=== PATIENT | female | born 1930 | race Caucasian/White ===

== ENCOUNTER 2017-05-23 10:32 | Day surgery (SDC) | payer MEDICARE, BC ==
[~2017-05-23 10:32] MED LIST: Lactated Ringers 1,000 ML IV SCH; Lidocaine 1%/Sod Bicarbonate in NS 8.4% 1 ML Syringe IV PRN; Sodium Chloride 0.9% 10 ML Syringe FLUSH PRN
--- NOTE | 2017-05-23 11:43 | PCM.PREANE ---
Preanesthetic Assessment - Anesthesia/Transfusion/Family Hx Anesthesia History: Prior Anesthesia Without Reaction Family History of Anesthesia Reaction: No Transfusion History: No Prior Transfusion(s) - Review of Systems General: No Symptoms Pulmonary: No Symptoms Cardiovascular: No Symptoms Gastrointestinal: No Symptoms Neurological: No Symptoms Other: Reports: None - Physical Assessment NPO Status Date: 05/23/17 NPO Status Time: 00:45 O2 Sat by Pulse Oximetry: 97 Respiratory Rate: 16 Vital Signs: Last Vital Signs Temp 36.3 C 05/23/17 10:50 Pulse 55 L 05/23/17 10:50 Resp 16 05/23/17 10:50 BP 117/65 05/23/17 10:50 Pulse Ox 97 05/23/17 10:50 Weight: 78 kg ASA Class: 3 Mental Status: Alert & Oriented x3 Airway Class: Mallampati = 1 Dentition: Reports: Partial (Upper), Missing Tooth/Teeth Thyro-Mental Finger Breadths: 3 Mouth Opening Finger Breadths: 3 ROM/Head Extension: Full Lungs: Clear to Auscultation, Normal Respiratory Effort Cardiovascular: Regular Rate, Regular Rhythm - Allergies Allergies/Adverse Reactions: Allergies Allergy/AdvReac Type Severity Reaction Status Date / Time aminolevulinic acid HCl Allergy Cannot Verified 05/22/17 12:49 [From Levulan] Remember atropine Allergy Swelling Verified 05/22/17 12:49 cerivastatin sodium AdvReac Paralysis Verified 05/22/17 12:49 [From Baycol] morphine AdvReac Chest Pain Verified 05/22/17 12:49 - Anesthesia Plan Pre-Op Medication Ordered: Beta Rachel Beta Rachel: Metoprolol Med Last Dose Date: 05/23/17 Med Last Dose Time: 08:30 - Acknowledgements Anesthesia Type Planned: MAC Pt an Appropriate Candidate for the Planned Anesthesia: Yes Alternatives and Risks of Anesthesia Discussed w Pt/Guardian: Yes Pt/Guardian Understands and Agrees with Anesthesia Plan: Yes Additional Comments: Patient understands with her recent cardiac surgery and AR she is at an increased risk for postoperative complications. She is understanding and wishes to proceed. Dr. Grady is also aware. PreAnesthesia Questionnaire HEENT History: Reports: Other (See Below) Other HEENT History: wears glasses, has hearing aids, upper plate Cardiovascular History: Reports: Afib, Heart Failure, Hypertension, AR, Other ( See Below) Other Cardiovascular History: ASCVD, CHF Respiratory History: Reports: None Gastrointestinal History: Reports: Cholelithiasis Genitourinary History: Reports: UTI, Recurrent, Other (See Below) Other Genitourinary History: renal insufficiency [employer] History: Reports: Musculoskeletal History: Reports: Back Pain, Chronic, Other (See Below) Other Musculoskeletal History: bunion, compression fracture, spinal stenosis Neurological History: Reports: None Psychiatric History: Reports: None Endocrine/Metabolic History: Reports: Hyperthyroidism, Osteoporosis Hematologic History: Reports: Anemia, Idiopathic Thrombocytopenia Oncologic (Cancer) History: Reports: Basal Cell Carcinoma, Other (See Below) Other Oncologic History: skin cancer Dermatologic History: Reports: Melanoma Other Dermatologic History: back of right leg, basal cell carcinoma on face, actinic keratosis - Infectious Disease History Infectious Disease History: Reports: Chicken Pox, Measles, Mumps - Past Surgical History HEENT Surgical History: Reports: Cataract Surgery Cardiovascular Surgical History: Reports: Coronary Artery Bypass, Other (See Below) Other Cardiovascular Surgeries/Procedures: angioplasty Respiratory Surgical History: Reports: None GI Surgical History: Reports: Cholecystectomy, Colonoscopy, Other (See Below) Other GI Surgeries/Procedures: splenectomy Female Surgical History: Reports: None Male Surgical History: Reports: None Endocrine Surgical History: Reports: None Neurological Surgical History: Reports: None Musculoskeletal Surgical History: Reports: Other (See Below) Other Musculoskeletal Surgeries/Procedures:: back surgery, 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, foot surgery Oncologic Surgical History: Reports: None Dermatological Surgical History: Reports: None, Skin Biopsy - SUBSTANCE USE Smoking Status *Q: Never Smoker Tobacco Use Within Last Twelve Months: No Second Hand Smoke Exposure: No Recreational Drug Use History: No - HOME MEDS Home Medications: Home Meds Denosumab [Prolia] 60 mg SUBCUT ASDIRECTED 09/22/15 [History] Rosuvastatin [Crestor] 10 mg PO BEDTIME #30 tablet 09/27/15 [Rx] Apixaban [Eliquis] 5 mg PO BID 10/23/15 [History] Cyanocobalamin (Vitamin B-12) [Vitamin B-12] 1,000 mg PO DAILY 10/23/15 [History ] Acetaminophen [Tylenol Extra Strength] 500 mg PO QID PRN 01/19/17 [History] Furosemide [Lasix] 20 mg PO BID 01/19/17 [History] Metoprolol Succinate [Toprol XL] 25 mg PO DAILY 01/19/17 [History] traMADol [Ultram] 50 mg PO Q6H PRN 01/19/17 [History] Calcium Carbonate/Vitamin D3 [Calcium 600 + Vit D Tablet] 1 tab PO DAILY [History] Fish Oil/[place]-3 Fatty Acids [Fish Oil 1,000 MG] 1 gm PO DAILY 05/22/17 [History ] - CURRENT (IN HOUSE) MEDS Current Meds: Current Medications Lactated Ringer's (Ringers, Lactated) 1,000 mls @ 125 mls/hr IV ASDIRECTED YANN Stop: 05/23/17 23:00 Lidocaine/Sodium Bicarbonate (Buffered Lidocaine 1% In Ns 8.4%) 0.25 ml IV ONETIME PRN PRN Reason: Prior to IV Start Stop: 05/23/17 18:00 Sodium Chloride (Saline Flush) 10 ml FLUSH ASDIRECTED PRN PRN Reason: Keep Vein Open Stop: 05/23/17 18:00
[2017-05-23] MEDS ORDERED: Lidocaine 1% 4 ML ONE (11:50)
[2017-05-23] MEDS ORDERED: Propofol 200 MG/20 ML SDV ONE (11:50)
--- NOTE | 2017-05-23 12:15 | PCM.OPNOTE ---
- General Post-Op/Procedure Note Date of Surgery/Procedure: 05/23/17 Operative Procedure(s): colonoscopy to cecum Pre Op Diagnosis: rectal bleeding Post-Op Diagnosis: Same Anesthesia Technique: MAC Primary Surgeon: Griffin Grady EBL in mLs: 0 Complications: None Condition: Good
--- NOTE | 2017-05-23 12:29 | PCM48HPAN ---
Post Anesthesia Note - EVALUATION WITHIN 48HRS OF ANESTHETIC Vital Signs in Normal Range: Yes Patient Participated in Evaluation: Yes Respiratory Function Stable: Yes Airway Patent: Yes Cardiovascular Function Stable: Yes Hydration Status Stable: Yes Pain Control Satisfactory: Yes Nausea and Vomiting Control Satisfactory: Yes Mental Status Recovered: Yes
--- NOTE | 2017-05-23 13:21 | OR ---
DATE OF OPERATION: 05/23/2017 SURGEON: Griffin Grady MD PREOPERATIVE DIAGNOSIS: Rectal bleeding. POSTOPERATIVE DIAGNOSIS: Rectal bleeding. OPERATION PERFORMED: Colonoscopy to cecum. FINDINGS: Thrombosed external hemorrhoids, some internal hemorrhoids likely source of bleeding. There are no angiodysplasias, neoplasias, large tumor masses, or ulcerations, and notable diverticula were not seen. ANESTHESIA: Procedure done under IV sedation. DESCRIPTION OF PROCEDURE: The patient was taken to the endoscopy room, placed in a supine position, connected to monitoring equipment, given IV sedation, and placed in left lateral position. Perianal area was inspected and showed thrombosed, protruding external hemorrhoids. Rectal exam showed good sphincter tone. A video Olympus colonoscope was then introduced into the rectum and threaded up without problem to the cecum, where the ileocecal valve and appendicular orifice were seen. Prep was excellent. [place] cleansing score grade A throughout the colon. The scope was slowly withdrawn showing the cecum, ascending colon, transverse colon, descending colon, sigmoid colon, and rectum. Retroflexed view was not done. The patient tolerated the procedure, sent to recovery room in a stable condition, and will be followed up as needed in the clinic. ESTIMATED BLOOD LOSS: MMODAL /[id number]
[2017-05-23 13:52] VITALS: BP 127/49
== END 2017-05-23 13:40 | disposition home or self-care (01) ==
LOC: JD.SDS 10:32
PROVIDERS: ATTEND Surgery
DX: K64.5 Perianal venous thrombosis (principal); K64.8 Other hemorrhoids; L57.0 Actinic keratosis; I25.10 Atherosclerotic heart disease of native coronary artery without angina pectoris; I48.91 Unspecified atrial fibrillation; I50.30 Unspecified diastolic (congestive) heart failure; M81.0 Age-related osteoporosis without current pathological fracture; E78.4 Other hyperlipidemia; M48.00 Spinal stenosis, site unspecified; I11.0 Hypertensive heart disease with heart failure; I25.2 Old myocardial infarction; E03.9 Hypothyroidism, unspecified; Z85.820 Personal history of malignant melanoma of skin; Z98.61 Coronary angioplasty status; Z98.890 Other specified postprocedural states; Z90.81 Acquired absence of spleen; Z79.899 Other long term (current) drug therapy; Z79.01 Long term (current) use of anticoagulants; Z88.8 Allergy status to other drugs, medicaments and biological substances; Z88.5 Allergy status to narcotic agent; Z95.1 Presence of aortocoronary bypass graft; Z90.49 Acquired absence of other specified parts of digestive tract
CPT/HCPCS: 45378; J7120; 00811; J2704

== ENCOUNTER 2017-10-24 10:35 | Emergency (ER) | payer MEDICARE, BC ==
[2017-10-24] MEDS ORDERED: Nitroglycerin 0.4 MG Tab.SL SL PRN (11:13)
[2017-10-24] MEDS ORDERED: Sodium Chloride 0.9% 10 ML Syringe FLUSH PRN (11:13)
--- NOTE | 2017-10-24 11:27 | EDM.PDOC ---
ED HPI GENERAL MEDICAL PROBLEM - General Chief Complaint: Chest Pain Stated Complaint: CHEST PAIN Time Seen by Provider: 10/24/17 10:59 Source of Information: Reports: Patient History Limitations: Reports: No Limitations - History of Present Illness INITIAL COMMENTS - FREE TEXT/NARRATIVE: Patient is a 86-year-old female with a history of age for fibrillation on Eliquis, heart failure, CABG times 07 December 2016, and hypertension who presents ED complaining of substernal chest discomfort. Discomfort described as sharp in nature most notably has been coming on at night while asleep. She states this often will wake her up in the middle of night while laying on her side. Pain is located substernal along the surgical incision site. She denies any recent fall or activity that precipitated this. States yesterday while walking back from dinner she was specifically more short of breath and upon returning to her residence developed substernal chest pain that went away on its own. She does note a burning sensation to the epigastric region and took Tums last night that resolved shortly after. She has extensive cardiac history. Had coronary bypass this past December by Dr. Carpenter 3. She's noticed increased weight gain over the past few weeks of almost 6 pounds. Is also been some noticeable mild increased edema to her lower extremities. Pain to the chest. Days ago did radiate into her back but this is not the norm. Normally is substernal with known radiation. She states also wench her chest feels cold the chest pain comes about. Yesterday she was and [place] walking around with no significant issues. With onset of chest pain no diaphoresis, no nausea or vomiting, or additional complaints. She currently has no chest pain, sob, fever, and or cough. - Related Data Allergies Allergy/AdvReac Type Severity Reaction Status Date / Time aminolevulinic acid HCl Allergy Cannot Verified 10/24/17 10:50 [From Levulan] Remember atropine Allergy Swelling Verified 10/24/17 10:50 cerivastatin sodium AdvReac Paralysis Verified 10/24/17 10:50 [From Baycol] morphine AdvReac Chest Pain Verified 10/24/17 10:50 Home Meds: Home Meds Denosumab [Prolia] 60 mg SUBCUT ASDIRECTED 09/22/15 [History] Rosuvastatin [Crestor] 10 mg PO BEDTIME #30 tablet 09/27/15 [Rx] Apixaban [Eliquis] 5 mg PO BID 10/23/15 [History] Cyanocobalamin (Vitamin B-12) [Vitamin B-12] 1,000 mg PO DAILY 10/23/15 [History ] Acetaminophen [Tylenol Extra Strength] 500 mg PO BID PRN 01/19/17 [History] traMADol [Ultram] 50 mg PO Q6H PRN 01/19/17 [History] Fish Oil/[place]-3 Fatty Acids [Fish Oil 1,000 MG] 1 gm PO DAILY 05/22/17 [History ] Aspirin [Halfprin] 81 mg PO DAILY 10/24/17 [History] Calcium Carb/Vitamin D3/Vit K1 [Viactiv Soft Chew] 1 b PO DAILY 10/24/17 [ History] Furosemide [Lasix] 80 mg PO DAILY 10/24/17 [History] Metoprolol Tartrate [Lopressor] 25 mg PO DAILY 10/24/17 [History] Omeprazole 20 mg PO DAILY #30 cap.cr 10/24/17 [Rx] Ramipril [Altace] 2.5 mg PO DAILY 10/24/17 [History] Past Medical History HEENT History: Reports: Other (See Below) Other HEENT History: wears glasses, has hearing aids, upper plate Cardiovascular History: Reports: Afib, Heart Failure, Hypertension, MD, Other ( See Below) Other Cardiovascular History: ASCVD, CHF Respiratory History: Reports: None Gastrointestinal History: Reports: Cholelithiasis Genitourinary History: Reports: UTI, Recurrent, Other (See Below) Other Genitourinary History: 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: 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: Musculoskeletal History: Reports: Back Pain, Chronic, Other (See Below) Other Musculoskeletal History: bunion, compression fracture, spinal stenosis Neurological History: Reports: None Psychiatric History: Reports: None Endocrine/Metabolic History: Reports: Hyperthyroidism, Osteoporosis Hematologic History: Reports: Anemia, Idiopathic Thrombocytopenia Oncologic (Cancer) History: Reports: Basal Cell Carcinoma, Other (See Below) Other Oncologic History: skin cancer Dermatologic History: Reports: Melanoma Other Dermatologic History: back of right leg, basal cell carcinoma on face, actinic keratosis - Infectious Disease History Infectious Disease History: Reports: Chicken Pox, Measles, Mumps - Past Surgical History HEENT Surgical History: Reports: Cataract Surgery Cardiovascular Surgical History: Reports: Coronary Artery Bypass, Other (See Below) Other Cardiovascular Surgeries/Procedures: angioplasty Respiratory Surgical History: Reports: None GI Surgical History: Reports: Cholecystectomy, Colonoscopy, Other (See Below) Other GI Surgeries/Procedures: splenectomy Female Surgical History: Reports: None Endocrine Surgical History: Reports: None Neurological Surgical History: Reports: None Musculoskeletal Surgical History: Reports: Other (See Below) Other Musculoskeletal Surgeries/Procedures:: back surgery, 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, foot surgery Oncologic Surgical History: Reports: None Dermatological Surgical History: Reports: None, Skin Biopsy Social & Family History - Family History Family Medical History: Noncontributory HEENT: Reports: Cataract Cardiac: Reports: MD : Reports: Renal Calculus, Other (See Below) Other Family History: Glomerular Nephritis Musculoskeletal: Reports: Back pain, Chronic Neurological: Reports: CVA Endocrine/Metabolic: Reports: None Oncologic: Reports: Brain - Caffeine Use Caffeine Use: Reports: Coffee - Living Situation & Occupation Living situation: Reports: Occupation: Retired ED ROS GENERAL - Review of Systems Review Of Systems: See Below Constitutional: Reports: No Symptoms HEENT: Reports: No Symptoms Respiratory: Reports: Pleuritic Chest Pain. Denies: Shortness of Breath, Wheezing, Cough, Sputum, Hemoptysis Cardiovascular: Reports: Chest Pain, Dyspnea on Exertion, Edema. Denies: Blood Pressure Problem, Claudication, Lightheadedness, Orthopnea, Palpitations, PND, Syncope GI/Abdominal: Reports: No Symptoms : Reports: No Symptoms Neurological: Reports: No Symptoms ED EXAM, GENERAL - Physical Exam Exam: See Below Exam Limited By: No Limitations General Appearance: Alert, WD/WN, No Apparent Distress Ears: Hearing Grossly Normal Nose: Normal Inspection Throat/Mouth: Normal Inspection, Normal Voice, No Airway Compromise Neck: Normal Inspection, Supple Respiratory/Chest: No Respiratory Distress, Lungs Clear, Normal Breath Sounds, No Accessory Muscle Use, Other (tender along the left lower sternal border worsened with palpation. ) Cardiovascular: Normal Peripheral Pulses, Regular Rate, Rhythm, No Murmur ( obvious) Peripheral Pulses: 4+: Radial (L), Radial (R) GI/Abdominal: Normal Bowel Sounds, Soft, Non-Tender, No Organomegaly, No Distention Back Exam: Normal Inspection Extremities: Other (Mild swelling increased to the left leg secondary to harvesting of the GSB. Chronic with no new changes. Family states slight increase in edema noted to the right leg. No pain along the posterior aspect of the leg. Peripheral pulses are intact. Skin pink warm and dry.) Neurological: Alert, Oriented, CN II-XII Intact, Normal Cognition, No Motor/ Sensory Deficits Psychiatric: Normal Affect, Normal Mood Skin Exam: Warm, Dry, Intact, Normal Color Course - Vital Signs Last Recorded V/S: Last Vital Signs Temp 98.4 F 10/24/17 17:49 Pulse 63 10/24/17 17:49 Resp 20 10/24/17 17:49 BP 134/65 10/24/17 17:49 Pulse Ox 95 10/24/17 17:49 - Orders/Labs/Meds Orders: Active Orders 24 hr Category Date Time Status Cardiac Monitoring [RC] . DIRECTED Care 10/24/17 11:13 Active Peripheral IV Care [RC] . DIRECTED Care 10/24/17 11:16 Active CULTURE URINE [RM] Stat Lab 10/24/17 17:00 Received ED GI Medications Reflex [OM.PC] Stat Oth 10/24/17 11:14 Ordered Peripheral IV Insertion Adult [OM.PC] Stat Oth 10/24/17 11:13 Ordered Saline Lock Insert [OM.PC] Stat Oth 10/24/17 11:13 Ordered Labs: Laboratory Tests 10/24/17 10/24/17 10/24/17 Range/Units 11:18 11:18 11:18 WBC 8.71 (3.98-10.04) K/mm3 RBC 4.32 (3.98-5.22) M/mm3 Hgb 12.9 (11.2-15.7) gm/L Hct 40.2 (34.1-44.9) % MCV 93.1 (79.4-94.8) fl MCH 29.9 (25.6-32.2) pg MCHC 32.1 L (32.2-35.5) g/dl RDW Std Deviation 49.3 H (36.4-46.3) fL Plt Count 250 (182-369) K/mm3 MPV 11.1 (9.4-12.3) fl Neut % (Auto) 39.2 (34.0-71.1) % Lymph % (Auto) 45.2 (19.3-51.7) % Potter % (Auto) 11.9 (4.7-12.5) % Eos % (Auto) 3.0 (0.7-5.8) Baso % (Auto) 0.6 (0.1-1.2) % Neut # (Auto) 3.41 (1.56-6.13) K/mm3 Lymph # (Auto) 3.94 H (1.18-3.74) K/mm3 Potter # (Auto) 1.04 H (0.24-0.36) K/mm3 Eos # (Auto) 0.26 (0.04-0.36) K/mm3 Baso # (Auto) 0.05 (0.01-0.08) K/mm3 ESR 21 H (0-20) mm/hr PT 11.8 (9.5-12.1) SECONDS INR 1.08 APTT 28 (24-31) SECONDS D-Dimer, Quantitative 0.23 (0.19-0.50) mg/L Sodium (136-145) mEq/L Potassium (3.5-5.1) mEq/L Chloride (98-107) mEq/L Carbon Dioxide (21-32) mEq/L Anion Gap (5-15) BUN (7-18) mg/dL Creatinine (0.55-1.02) mg/dL Est Cr Clr Drug Dosing mL/min Estimated GFR (MDRD) (>60) mL/min BUN/Creatinine Ratio (14-18) Glucose (83-115) mg/dL Calcium (8.5-10.1) mg/dL Magnesium (1.8-2.4) mg/dl Total Bilirubin (0.2-1.0) mg/dL AST (15-37) U/L ALT (14-59) U/L Alkaline Phosphatase (46-116) U/L Troponin I (0.00-0.056) ng/mL C-Reactive Protein (<1.0) mg/dL NT-Pro-B Natriuret Pep (0-450) pg/mL Total Protein (6.4-8.2) g/dl Albumin (3.4-5.0) g/dl Globulin gm/dL Albumin/Globulin Ratio (1-2) Lipase (73-393) U/L Urine Color (Yellow) Urine Appearance (Clear) Urine pH (5.0-8.0) Ur Specific [place] (1.005-1.030) Urine Protein (Negative) Urine Glucose (UA) (Negative) Urine Ketones (Negative) Urine Occult Blood (Negative) Urine Nitrite (Negative) Urine Bilirubin (Negative) Urine Urobilinogen (0.2-1.0) Ur Leukocyte Esterase (Negative) Urine RBC (0-5) /hpf Urine WBC (0-5) /hpf Ur Epithelial Cells (0-5) /hpf Urine Bacteria (FEW) /hpf Hyaline Casts (0-5) /lpf Fine Granular Casts (0-5) /lpf Waxy Casts (0-5) /lpf Urine Mucus (FEW) /hpf 10/24/17 10/24/17 10/24/17 Range/Units 11:18 11:18 14:20 WBC (3.98-10.04) K/mm3 RBC (3.98-5.22) M/mm3 Hgb (11.2-15.7) gm/L Hct (34.1-44.9) % MCV (79.4-94.8) fl MCH (25.6-32.2) pg MCHC (32.2-35.5) g/dl RDW Std Deviation (36.4-46.3) fL Plt Count (182-369) K/mm3 MPV (9.4-12.3) fl Neut % (Auto) (34.0-71.1) % Lymph % (Auto) (19.3-51.7) % Potter % (Auto) (4.7-12.5) % Eos % (Auto) (0.7-5.8) Baso % (Auto) (0.1-1.2) % Neut # (Auto) (1.56-6.13) K/mm3 Lymph # (Auto) (1.18-3.74) K/mm3 Potter # (Auto) (0.24-0.36) K/mm3 Eos # (Auto) (0.04-0.36) K/mm3 Baso # (Auto) (0.01-0.08) K/mm3 ESR (0-20) mm/hr PT (9.5-12.1) SECONDS INR APTT (24-31) SECONDS D-Dimer, Quantitative (0.19-0.50) mg/L Sodium 142 (136-145) mEq/L Potassium 3.5 (3.5-5.1) mEq/L Chloride 104 (98-107) mEq/L Carbon Dioxide 27 (21-32) mEq/L Anion Gap 14.5 (5-15) BUN 18 (7-18) mg/dL Creatinine 1.1 H (0.55-1.02) mg/dL Est Cr Clr Drug Dosing 31.70 mL/min Estimated GFR (MDRD) 47 (>60) mL/min BUN/Creatinine Ratio 16.4 (14-18) Glucose 179 H (83-115) mg/dL Calcium 9.3 (8.5-10.1) mg/dL Magnesium 1.5 L (1.8-2.4) mg/dl Total Bilirubin 0.6 (0.2-1.0) mg/dL AST 27 (15-37) U/L ALT 21 (14-59) U/L Alkaline Phosphatase 63 (46-116) U/L Troponin I 0.037 0.035 (0.00-0.056) ng/mL C-Reactive Protein < 0.2 (<1.0) mg/dL NT-Pro-B Natriuret Pep 548 H (0-450) pg/mL Total Protein 6.7 (6.4-8.2) g/dl Albumin 3.2 L (3.4-5.0) g/dl Globulin 3.5 gm/dL Albumin/Globulin Ratio 0.9 L (1-2) Lipase 123 (73-393) U/L Urine Color (Yellow) Urine Appearance (Clear) Urine pH (5.0-8.0) Ur Specific [place] (1.005-1.030) Urine Protein (Negative) Urine Glucose (UA) (Negative) Urine Ketones (Negative) Urine Occult Blood (Negative) Urine Nitrite (Negative) Urine Bilirubin (Negative) Urine Urobilinogen (0.2-1.0) Ur Leukocyte Esterase (Negative) Urine RBC (0-5) /hpf Urine WBC (0-5) /hpf Ur Epithelial Cells (0-5) /hpf Urine Bacteria (FEW) /hpf Hyaline Casts (0-5) /lpf Fine Granular Casts (0-5) /lpf Waxy Casts (0-5) /lpf Urine Mucus (FEW) /hpf 10/24/17 10/24/17 Range/Units 17:00 18:00 WBC (3.98-10.04) K/mm3 RBC (3.98-5.22) M/mm3 Hgb (11.2-15.7) gm/L Hct (34.1-44.9) % MCV (79.4-94.8) fl MCH (25.6-32.2) pg MCHC (32.2-35.5) g/dl RDW Std Deviation (36.4-46.3) fL Plt Count (182-369) K/mm3 MPV (9.4-12.3) fl Neut % (Auto) (34.0-71.1) % Lymph % (Auto) (19.3-51.7) % Potter % (Auto) (4.7-12.5) % Eos % (Auto) (0.7-5.8) Baso % (Auto) (0.1-1.2) % Neut # (Auto) (1.56-6.13) K/mm3 Lymph # (Auto) (1.18-3.74) K/mm3 Potter # (Auto) (0.24-0.36) K/mm3 Eos # (Auto) (0.04-0.36) K/mm3 Baso # (Auto) (0.01-0.08) K/mm3 ESR (0-20) mm/hr PT (9.5-12.1) SECONDS INR APTT (24-31) SECONDS D-Dimer, Quantitative (0.19-0.50) mg/L Sodium (136-145) mEq/L Potassium (3.5-5.1) mEq/L Chloride (98-107) mEq/L Carbon Dioxide (21-32) mEq/L Anion Gap (5-15) BUN (7-18) mg/dL Creatinine (0.55-1.02) mg/dL Est Cr Clr Drug Dosing mL/min Estimated GFR (MDRD) (>60) mL/min BUN/Creatinine Ratio (14-18) Glucose (83-115) mg/dL Calcium (8.5-10.1) mg/dL Magnesium (1.8-2.4) mg/dl Total Bilirubin (0.2-1.0) mg/dL AST (15-37) U/L ALT (14-59) U/L Alkaline Phosphatase (46-116) U/L Troponin I 0.026 (0.00-0.056) ng/mL C-Reactive Protein (<1.0) mg/dL NT-Pro-B Natriuret Pep (0-450) pg/mL Total Protein (6.4-8.2) g/dl Albumin (3.4-5.0) g/dl Globulin gm/dL Albumin/Globulin Ratio (1-2) Lipase (73-393) U/L Urine Color Yellow (Yellow) Urine Appearance Clear (Clear) Urine pH 6.5 (5.0-8.0) Ur Specific [place] 1.020 (1.005-1.030) Urine Protein Negative (Negative) Urine Glucose (UA) Negative (Negative) Urine Ketones Negative (Negative) Urine Occult Blood Negative (Negative) Urine Nitrite Negative (Negative) Urine Bilirubin Negative (Negative) Urine Urobilinogen 0.2 (0.2-1.0) Ur Leukocyte Esterase 1+ H (Negative) Urine RBC Not seen (0-5) /hpf Urine WBC 40-50 H (0-5) /hpf Ur Epithelial Cells 0-5 (0-5) /hpf Urine Bacteria Few (FEW) /hpf Hyaline Casts 0-5 (0-5) /lpf Fine Granular Casts 0-5 (0-5) /lpf Waxy Casts 0-5 (0-5) /lpf Urine Mucus Not seen (FEW) /hpf Meds: Medications Discontinued Medications Generic Name Dose Route Start Last Admin Trade Name Esauq PRN Reason Stop Dose Admin Furosemide 40 mg 10/24/17 15:23 10/24/17 15:49 Lasix IVPUSH 10/24/17 15:24 40 mg NOW ONE Administration Magnesium Sulfate 2 gm/ Premix 50 mls @ 25 mls/hr 10/24/17 11:57 10/24/17 12: 13 IV 10/24/17 13:56 25 mls/hr ONETIME ONE Administration Nitroglycerin 0.4 mg 10/24/17 11:13 Nitrostat SL 10/25/17 11:16 Q5M PRN Chest Pain Potassium Chloride 40 meq 10/24/17 15:23 10/24/17 15:49 Klor-Con M20 PO 10/24/17 15:24 40 meq ONETIME ONE Administration Sodium Chloride 10 ml 10/24/17 11:13 10/24/17 11:39 Saline Flush FLUSH 10 ml ASDIRECTED PRN Administration Keep Vein Open - Re-Assessments/Exams Free Text/Narrative Re-Assessment/Exam: IV established saline lock. Ordered nitroglycerin sublingual when necessary for chest pain. She has no chest pain currently. Vital signs are stable. Initial labs and studies will include CBC, chem 14, CRP, d-dimer, ESR, lipase, magnesium, proBNP, coag studies, troponin, chest x-ray, and EKG. EKG sinus rhythm at a rate of 75 with left bundle branch block. Reviewed previous EKG dated 12/25/2016 and was revealed a left bundle branch block as well. With review previous cardiovascular studies conducted here at [facility]. I do not see a recent echocardiogram obtained. She was last evaluated by Dr. Murillo dental laboratory technician with heart and lung at [facility] this past May. This was a follow-up visit following CABG [address] Carpenter. 10/24/17 12:04 Labs reviewed: CBC essentially normal. D-dimer 0.23. Creatinine 1.1, magnesium mildly low at 1.5, troponin 0.037, BNP 548, lipase 123. CRP is pending. Second troponin will be obtained at 1418. CXR reviewed with Dr. Hernandez with no significant changes noted from previous CXR 12/2016. Ordered magnesium 2 grams IV. 10/24/17 15:08 2nd troponin 0.035. [address] Dalton bridge ironworker Cardiologists. She believes current complaints are due to increased fluid with recent weight gain, worsening sob with exertion, and chest pain with exertion. Suggested increasing lasix from 80mg qam to 160mg qam for 3 days. No imdur. Check weight daily. If no improvements call [facility] and [facility] this coming Sunday for further direction. I have ordered lasix 40mg IVP with potassium 40mEq PO. Patient agrees with plan. Return precautions discussed with patient and family present. They had no further questions. Will get patient up and walk and see how she does prior to discharge. Patient walked around the E.D. Patient did become slightly SOB with slight CP. Will await and see if chest pain dissipates. No medications will be given. If no change will consult hospitalists for transfer. 1610 Reassessment, sob and chest pain resolved. Both family and patient are concerned about discharging home with patient having stable angina. Discussed admission for diuresis to which they have agreed. Will speak with Dr. Scanlon. [address] Scanlon. She will have All Source Analyst see the patient prior to admission to ensure discharge plan is present. [address] Scanlon. Suggested transfer to [facility] to undergo coronary angiogram to ensure graphs are patent. Believes this is unstable angina since change from baseline. 1705 Patient and family are okay with transferring to [facility] for evaluation. 10/24/17 17:[address] Watkins bridge ironworker Cardiologists. He agrees further cardiac evaluation would be appropriate. 1731 I have spoke with Dr. Reed bridge ironworker Hospitalists at [facility]. She has accepted the patient. Ambulance notified and all transfer paperwork completed. Departure - Departure Time of Disposition: 15:40 Disposition: DC/Tfer to Acute Hospital 02 Reason for Transfer *Q: Other Condition: Good Clinical Impression: Unstable angina Acute exacerbation of CHF (congestive heart failure) Qualifiers: Heart failure type: unspecified Qualified Code(s): I50.9 - Heart failure, unspecified GERD (gastroesophageal reflux disease) Qualifiers: Esophagitis presence: esophagitis presence not specified Qualified Code(s): K21.9 - Gastro-esophageal reflux disease without esophagitis Prescriptions: Omeprazole 20 mg PO DAILY #30 cap.cr Instructions: Heart Failure Action Plan, Gastroesophageal Reflux Disease, Adult , [id number], Heart Failure, Potassium (K) Test, Angina Pectoris, Form - Daily Weight Record Referrals: Jose Carlos Westfall MD [Primary Care Provider] - Forms: ED Department Discharge - My Orders Last 24 Hours: My Active Orders 10/24/17 11:13 Cardiac Monitoring [RC] . DIRECTED Peripheral IV Insertion Adult [OM.PC] Stat Saline Lock Insert [OM.PC] Stat 10/24/17 11:14 ED GI Medications Reflex [OM.PC] Stat 10/24/17 11:16 Peripheral IV Care [RC] . DIRECTED 10/24/17 17:00 CULTURE URINE [RM] Stat - Assessment/Plan Last 24 Hours: My Active Orders 10/24/17 11:13 Cardiac Monitoring [RC] . DIRECTED Peripheral IV Insertion Adult [OM.PC] Stat Saline Lock Insert [OM.PC] Stat 10/24/17 11:14 ED GI Medications Reflex [OM.PC] Stat 10/24/17 11:16 Peripheral IV Care [RC] . DIRECTED 10/24/17 17:00 CULTURE URINE [RM] Stat
[2017-10-24] MEDS ORDERED: Magnesium Sulfate/Water 2 GM in Premix Bag 1 BAG IV ONE (11:57)
--- NOTE | 2017-10-24 13:19 | CR ---
Chest: Portable view of the chest was obtained. Comparison: Prior chest x-ray of 12/25/16. Heart is slightly enlarged. Widening of the mediastinum is seen superiorly which appears to be chronic. Pulmonary vessels are felt to be slightly congested. No alveolar type densities are seen. Bony structures are osteopenic. Prior vertebroplasty is seen at the thoracolumbar junction which is stable. Previous sternotomy is noted for CABG. Impression: 1. Pulmonary vessels are felt to be slightly congested. 2. Other incidental findings as noted above. Diagnostic code #3
[2017-10-24] MEDS ORDERED: Potassium Chloride 20 MEQ Tab.ER PO ONE (15:23)
[2017-10-24] MEDS ORDERED: Furosemide 40 MG/4 ML VIAL IVPUSH ONE (15:23)
[2017-10-24 17:50] VITALS: BP 134/65
== END 2017-10-24 18:30 ==
LOC: JD.ED 10:35
DX: I20.0 Unstable angina (principal); K21.9 Gastro-esophageal reflux disease without esophagitis; I11.0 Hypertensive heart disease with heart failure; I50.9 Heart failure, unspecified; I25.2 Old myocardial infarction; E05.90 Thyrotoxicosis, unspecified without thyrotoxic crisis or storm; Z95.1 Presence of aortocoronary bypass graft; Z88.8 Allergy status to other drugs, medicaments and biological substances; Z88.5 Allergy status to narcotic agent; Z79.899 Other long term (current) drug therapy; Z79.82 Long term (current) use of aspirin
CPT/HCPCS: 36415; 71045; 80053; 81001; 83690; 83735; 83880; 84484; 85025; 85379; 85610; 85652; 85730; 86140; 87086; 96365; 96366; 96375; 99285; A9270; J1940; J7050; 87088; 87186; J3475

== ENCOUNTER 2017-11-03 14:58 | Inpatient (IN) | payer MEDICARE, BC ==
[2017-11-03] MEDS ORDERED: Sodium Chloride 0.9% 10 ML Syringe FLUSH PRN (15:25)
[2017-11-03] MEDS ORDERED: Sodium Chloride 0.9% 1,000 ML IV SCH (15:30)
--- NOTE | 2017-11-03 15:34 | EDM.PDOC ---
ED HPI GENERAL MEDICAL PROBLEM - General Chief Complaint: Cardiovascular Problem Stated Complaint: RAPID HEART RATE Time Seen by Provider: 11/03/17 15:02 Source of Information: Reports: Patient, Family History Limitations: Reports: No Limitations - History of Present Illness INITIAL COMMENTS - FREE TEXT/NARRATIVE: Patient is a 86-year-old female who presents ED in nature fibrillation complaining of increasing shortness of breath with exertion with no chest pain. Family present who are all nurses in the E.D. reported HR in the 130-140's with ambulation. Patient recently underwent stent placement to the LAD and also circumflex 2 days ago at [facility]. She was seen in the ED on its October year and [place] with diagnosis of unstable chest discomfort. She was transferred to [place] for further cardiac testings. Patient did have chest discomfort with ambulation here in the ED that is relieved with rest. 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 Patient recently underwent cardiac stress testing which was abnormal. Coronary angiogram revealed the venous grafts were thrombosed. They elected to attempt stenting with placement of a left ventricular device and pillow for severe coronary disease. Patient had stent placement to the LAD and also circumflex. Had one episode of atrial fibrillation 11/01/2017. Metoprolol restarted as well as placement of IV him and wrote. She later reported back to normal sinus rhythm. She was discharged on decreased dose metoprolol 12.5 mg daily, amiodarone Taper, and decreased dose of Eliquis at 2.5 mg twice a day. There is instructions to follow-up with PCP in one week. [facility] cardiology in 2 weeks along with cardiac rehabilitation. - Related Data Allergies Allergy/AdvReac Type Severity Reaction Status Date / Time aminolevulinic acid HCl Allergy Cannot Verified 10/24/17 10:50 [From Levulan] Remember atropine Allergy Swelling Verified 10/24/17 10:50 cerivastatin sodium AdvReac Paralysis Verified 10/24/17 10:50 [From Baycol] morphine AdvReac Chest Pain Verified 10/24/17 10:50 Home Meds: Home Meds Acetaminophen [Tylenol Extra Strength] 500 mg PO Q4HR PRN 11/03/17 [History] Amiodarone [Cordarone] 200 mg PO DAILY 11/03/17 [History] Amiodarone [Cordarone] 400 mg PO DAILY 11/03/17 [History] Apixaban [Eliquis] 2.5 mg PO BID 11/03/17 [History] Aspirin [Adult Low Dose Aspirin EC] 81 mg PO DAILY 11/03/17 [History] Clopidogrel [Plavix] 75 mg PO DAILY 11/03/17 [History] Cyanocobalamin (Vitamin B-12) [Vitamin B-12] 1,000 mcg PO DAILY 11/03/17 [ History] Denosumab [Prolia] 60 mg INJECT Q6M 11/03/17 [History] Furosemide 40 mg PO BID 11/03/17 [History] Metoprolol Succinate [Toprol XL] 12.5 mg PO DAILY 11/03/17 [History] Nitroglycerin 0.4 mg SL ASDIRECTED PRN 11/03/17 [History] Pantoprazole Sodium [Protonix] 40 mg PO DAILY 11/03/17 [History] Rosuvastatin [Crestor] 10 mg PO BEDTIME 11/03/17 [History] Sulfamethoxazole/Trimethoprim [Bactrim Ds Tablet] 1 each PO BID 11/03/17 [ History] traMADol [Ultram] 50 mg PO Q6H PRN 11/03/17 [History] Past Medical History HEENT History: Reports: Other (See Below) Other HEENT History: wears glasses, has hearing aids, upper plate Cardiovascular History: Reports: Afib, Heart Failure, Hypertension, OR, Stents, Other (See Below) Other Cardiovascular History: ASCVD, CHF; LAD and circumflex stents placed on October 31 at [facility] per dr. 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 AUDIOPROSTHOLOGIST History: Reports: Musculoskeletal History: Reports: Back Pain, Chronic, Other (See Below) Other Musculoskeletal History: bunion, compression fracture, spinal stenosis Neurological History: Reports: None Psychiatric History: Reports: None Endocrine/Metabolic History: Reports: Hyperthyroidism, Osteoporosis Hematologic History: Reports: Anemia, Idiopathic Thrombocytopenia Oncologic (Cancer) History: Reports: Basal Cell Carcinoma, Other (See Below) Other Oncologic History: skin cancer Dermatologic History: Reports: Melanoma Other Dermatologic History: back of right leg, basal cell carcinoma on face, actinic keratosis - Infectious Disease History Infectious Disease History: Reports: Chicken Pox, Measles, Mumps - Past Surgical History HEENT Surgical History: Reports: Cataract Surgery Cardiovascular Surgical History: Reports: Coronary Artery Bypass, Other (See Below) Other Cardiovascular Surgeries/Procedures: angioplasty Respiratory Surgical History: Reports: None GI Surgical History: Reports: Cholecystectomy, Colonoscopy, Other (See Below) Other GI Surgeries/Procedures: splenectomy Female Surgical History: Reports: None Endocrine Surgical History: Reports: None Neurological Surgical History: Reports: None Musculoskeletal Surgical History: Reports: Other (See Below) Other Musculoskeletal Surgeries/Procedures:: back surgery, 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, foot surgery Oncologic Surgical History: Reports: None Dermatological Surgical History: Reports: None, Skin Biopsy Social & Family History - Family History Family Medical History: Noncontributory HEENT: Reports: Cataract Cardiac: Reports: OR : Reports: Renal Calculus, Other (See Below) Other Family History: Glomerular Nephritis Musculoskeletal: Reports: Back pain, Chronic Neurological: Reports: CVA Endocrine/Metabolic: Reports: None Oncologic: Reports: Brain - Tobacco Use Smoking Status *Q: Never Smoker - Caffeine Use Caffeine Use: Reports: Coffee, Soda Caffeine Use Comment: one cup of coffee in the mornings. - Recreational Drug Use Recreational Drug Use: No - Living Situation & Occupation Living situation: Reports: Occupation: Retired ED ROS GENERAL - Review of Systems Review Of Systems: See Below Constitutional: Reports: Malaise, Weakness, Decreased Appetite. Denies: Fever, Chills HEENT: Reports: No Symptoms Respiratory: Reports: Shortness of Breath (With exertion). Denies: Wheezing, Pleuritic Chest Pain, Cough, Sputum Cardiovascular: Reports: Dyspnea on Exertion, Palpitations. Denies: Chest Pain , Lightheadedness, Syncope GI/Abdominal: Reports: No Symptoms : Reports: No Symptoms Musculoskeletal: Reports: No Symptoms Neurological: Reports: No Symptoms ED EXAM, GENERAL - Physical Exam Exam: See Below Exam Limited By: No Limitations General Appearance: Alert, WD/WN, No Apparent Distress Ears: Hearing Grossly Normal Nose: Normal Inspection Throat/Mouth: Normal Voice, No Airway Compromise Head: Atraumatic, Normocephalic Neck: Normal Inspection, Supple, Non-Tender, Full Range of Motion Respiratory/Chest: No Respiratory Distress, Lungs Clear, Normal Breath Sounds, No Accessory Muscle Use, Chest Non-Tender Cardiovascular: Normal Peripheral Pulses, No Edema, No JVD, Tachycardia, Systolic Murmur, Irregularly Irregular Peripheral Pulses: 2+: Posterior Tibial (L), Posterior Tibial (R), 4+: Radial (L ), Radial (R) GI/Abdominal: Normal Bowel Sounds, Soft, Non-Tender, No Organomegaly, No Distention Extremities: Normal Inspection, Non-Tender, No Pedal Edema, Normal Capillary Refill Neurological: Alert, Oriented, CN II-XII Intact, Normal Cognition, No Motor/ Sensory Deficits Psychiatric: Normal Affect, Normal Mood Skin Exam: Warm, Dry, Intact, No Rash, Other (grayish) Course - Vital Signs Last Recorded V/S: Last Vital Signs Temp 98.0 F 11/04/17 12:00 Pulse 112 H 11/03/17 15:01 Resp 17 11/04/17 12:00 BP 119/67 11/04/17 12:00 Pulse Ox 95 11/04/17 12:00 - Orders/Labs/Meds Orders: Active Orders 24 hr Category Date Time Status Cardiac Monitoring [RC] . DIRECTED Care 11/03/17 15:25 Active EKG Documentation Completion [RC] STAT Care 11/03/17 15:26 Active Chest 1V Frontal [CR] Stat Exams 11/03/17 15:26 Taken UA W/MICROSCOPIC [URIN] Stat Lab 11/03/17 17:15 Ordered Sodium Chloride 0.9% [Saline Flush] Med 11/03/17 15:25 Active 10 ml FLUSH ASDIRECTED PRN Peripheral IV Insertion Adult [OM.PC] Stat Oth 11/03/17 15:25 Ordered Medication Orders Acetaminophen (Tylenol) 650 mg PO Q4H PRN PRN Reason: Pain Last Admin: 11/03/17 21:24 Dose: 650 mg Amiodarone HCl (Cordarone) 400 mg PO BID [facility] Last Admin: 11/04/17 08:45 Dose: 400 mg Admin: 11/03/17 21:17 Dose: 400 mg Apixaban (Eliquis) 2.5 mg PO BID [facility] Last Admin: 11/04/17 08:45 Dose: 2.5 mg Admin: 11/03/17 21:17 Dose: 2.5 mg Aspirin (Halfprin) 81 mg PO DAILY [facility] Last Admin: 11/04/17 08:44 Dose: 81 mg Cephalexin (Keflex) 500 mg PO Q12H [facility] Last Admin: 11/04/17 08:44 Dose: 500 mg Admin: 11/03/17 21:18 Dose: 500 mg Clopidogrel Bisulfate (Plavix) 75 mg PO DAILY [facility] Last Admin: 11/04/17 08:44 Dose: 75 mg Furosemide (Lasix) 40 mg PO BIDDIURETIC [facility] Last Admin: 11/04/17 06:42 Dose: 40 mg Hydralazine HCl (Apresoline) 20 mg IVPUSH Q8H PRN PRN Reason: Hypertension Magnesium Oxide (Magnesium Oxide) 800 mg PO DAILY [facility] Last Admin: 11/04/17 08:44 Dose: 800 mg Metoprolol Tartrate (Lopressor) 5 mg IVPUSH Q6H PRN PRN Reason: heart rate>120 Nitroglycerin (Nitrostat) 0.4 mg SL ASDIRECTED PRN PRN Reason: angina Pantoprazole Sodium (Protonix) 40 mg PO DAILY@0700 [facility] Last Admin: 11/04/17 06:42 Dose: 40 mg Rosuvastatin Calcium (Crestor) 10 mg PO BEDTIME [facility] Last Admin: 11/03/17 21:17 Dose: 10 mg Sodium Chloride (Saline Flush) 10 ml FLUSH ASDIRECTED PRN PRN Reason: Keep Vein Open Last Admin: 11/03/17 15:43 Dose: 10 ml Tramadol HCl (Ultram) 50 mg PO Q6H PRN PRN Reason: Pain Labs: Laboratory Tests 11/03/17 11/03/17 11/03/17 Range/Units 15:19 15:19 15:19 WBC 11.05 H (3.98-10.04) K/mm3 RBC 3.50 L (3.98-5.22) M/mm3 Hgb 10.5 L (11.2-15.7) gm/L Hct 32.3 L (34.1-44.9) % MCV 92.3 (79.4-94.8) fl MCH 30.0 (25.6-32.2) pg MCHC 32.5 (32.2-35.5) g/dl RDW Std Deviation 46.6 H (36.4-46.3) fL Plt Count 230 (182-369) K/mm3 MPV 11.0 (9.4-12.3) fl Neut % (Auto) 46.9 (34.0-71.1) % Lymph % (Auto) 37.3 (19.3-51.7) % [place] % (Auto) 11.8 (4.7-12.5) % Eos % (Auto) 3.3 (0.7-5.8) Baso % (Auto) 0.5 (0.1-1.2) % Neut # (Auto) 5.19 (1.56-6.13) K/mm3 Lymph # (Auto) 4.12 H (1.18-3.74) K/mm3 [place] # (Auto) 1.30 H (0.24-0.36) K/mm3 Eos # (Auto) 0.37 H (0.04-0.36) K/mm3 Baso # (Auto) 0.05 (0.01-0.08) K/mm3 Manual Slide Review Normal smear PT 11.1 (9.5-12.1) SECONDS INR 1.02 APTT 27 (24-31) SECONDS D-Dimer, Quantitative 3.39 H (0.19-0.50) mg/L Sodium 137 (136-145) mEq/L Potassium 3.4 L (3.5-5.1) mEq/L Chloride 101 (98-107) mEq/L Carbon Dioxide 25 (21-32) mEq/L Anion Gap 14.4 (5-15) BUN 18 (7-18) mg/dL Creatinine 1.5 H (0.55-1.02) mg/dL Est Cr Clr Drug Dosing 22.27 mL/min Estimated GFR (MDRD) 33 (>60) mL/min BUN/Creatinine Ratio 12.0 L (14-18) Glucose 118 H (83-115) mg/dL Calcium 8.4 L (8.5-10.1) mg/dL Magnesium 1.4 L (1.8-2.4) mg/dl Total Bilirubin 1.0 (0.2-1.0) mg/dL AST 20 (15-37) U/L ALT 14 (14-59) U/L Alkaline Phosphatase 72 (46-116) U/L CK-MB (CK-2) 0.6 (0-3.6) ng/ml Troponin I < 0.017 (0.00-0.056) ng/mL C-Reactive Protein 9.9 H* (<1.0) mg/dL NT-Pro-B Natriuret Pep (0-450) pg/mL Total Protein 6.5 (6.4-8.2) g/dl Albumin 2.6 L (3.4-5.0) g/dl Globulin 3.9 gm/dL Albumin/Globulin Ratio 0.7 L (1-2) Urine Color (Yellow) Urine Appearance (Clear) Urine pH (5.0-8.0) Ur Specific [place] (1.005-1.030) Urine Protein (Negative) Urine Glucose (UA) (Negative) Urine Ketones (Negative) Urine Occult Blood (Negative) Urine Nitrite (Negative) Urine Bilirubin (Negative) Urine Urobilinogen (0.2-1.0) Ur Leukocyte Esterase (Negative) Urine RBC (0-5) /hpf Urine WBC (0-5) /hpf Ur Epithelial Cells (0-5) /hpf Urine Bacteria (FEW) /hpf Urine Mucus (FEW) /hpf 11/03/17 11/03/17 Range/Units 15:19 17:15 WBC (3.98-10.04) K/mm3 RBC (3.98-5.22) M/mm3 Hgb (11.2-15.7) gm/L Hct (34.1-44.9) % MCV (79.4-94.8) fl MCH (25.6-32.2) pg MCHC (32.2-35.5) g/dl RDW Std Deviation (36.4-46.3) fL Plt Count (182-369) K/mm3 MPV (9.4-12.3) fl Neut % (Auto) (34.0-71.1) % Lymph % (Auto) (19.3-51.7) % [place] % (Auto) (4.7-12.5) % Eos % (Auto) (0.7-5.8) Baso % (Auto) (0.1-1.2) % Neut # (Auto) (1.56-6.13) K/mm3 Lymph # (Auto) (1.18-3.74) K/mm3 [place] # (Auto) (0.24-0.36) K/mm3 Eos # (Auto) (0.04-0.36) K/mm3 Baso # (Auto) (0.01-0.08) K/mm3 Manual Slide Review PT (9.5-12.1) SECONDS INR APTT (24-31) SECONDS D-Dimer, Quantitative (0.19-0.50) mg/L Sodium (136-145) mEq/L Potassium (3.5-5.1) mEq/L Chloride (98-107) mEq/L Carbon Dioxide (21-32) mEq/L Anion Gap (5-15) BUN (7-18) mg/dL Creatinine (0.55-1.02) mg/dL Est Cr Clr Drug Dosing mL/min Estimated GFR (MDRD) (>60) mL/min BUN/Creatinine Ratio (14-18) Glucose (83-115) mg/dL Calcium (8.5-10.1) mg/dL Magnesium (1.8-2.4) mg/dl Total Bilirubin (0.2-1.0) mg/dL AST (15-37) U/L ALT (14-59) U/L Alkaline Phosphatase (46-116) U/L CK-MB (CK-2) (0-3.6) ng/ml Troponin I (0.00-0.056) ng/mL C-Reactive Protein (<1.0) mg/dL NT-Pro-B Natriuret Pep 652 H (0-450) pg/mL Total Protein (6.4-8.2) g/dl Albumin (3.4-5.0) g/dl Globulin gm/dL Albumin/Globulin Ratio (1-2) Urine Color Light yellow (Yellow) Urine Appearance Clear (Clear) Urine pH 6.5 (5.0-8.0) Ur Specific [place] 1.010 (1.005-1.030) Urine Protein Negative (Negative) Urine Glucose (UA) Negative (Negative) Urine Ketones Negative (Negative) Urine Occult Blood Negative (Negative) Urine Nitrite Negative (Negative) Urine Bilirubin Negative (Negative) Urine Urobilinogen 0.2 (0.2-1.0) Ur Leukocyte Esterase Trace H (Negative) Urine RBC 0-5 (0-5) /hpf Urine WBC 0-5 (0-5) /hpf Ur Epithelial Cells 0-5 (0-5) /hpf Urine Bacteria Not seen (FEW) /hpf Urine Mucus Not seen (FEW) /hpf Meds: Medications Generic Name Dose Route Start Last Admin Trade Name Marlee PRN Reason Stop Dose Admin Acetaminophen 650 mg 11/03/17 21:12 11/03/17 21:24 Tylenol PO 650 mg Q4H PRN Administration Pain Amiodarone HCl 400 mg 11/03/17 21:00 11/04/17 08:45 Cordarone PO 400 mg BID YANN Administration Apixaban 2.5 mg 11/03/17 21:00 11/04/17 08:45 Eliquis PO 2.5 mg BID YANN Administration Aspirin 81 mg 11/04/17 09:00 11/04/17 08:44 Halfprin PO 81 mg DAILY YANN Administration Cephalexin 500 mg 11/03/17 21:00 11/04/17 08:44 Keflex PO 500 mg Q12H YANN Administration Clopidogrel Bisulfate 75 mg 11/04/17 09:00 11/04/17 08:44 Plavix PO 75 mg DAILY YANN Administration Furosemide 40 mg 11/04/17 06:00 11/04/17 06:42 Lasix PO 40 mg BIDDIURETIC YANN Administration Hydralazine HCl 20 mg 11/03/17 20:51 Apresoline IVPUSH Q8H PRN Hypertension Magnesium Oxide 800 mg 11/04/17 09:00 11/04/17 08:44 Magnesium Oxide PO 800 mg DAILY YANN Administration Metoprolol Tartrate 5 mg 11/03/17 20:58 Lopressor IVPUSH Q6H PRN heart rate>120 Nitroglycerin 0.4 mg 11/03/17 20:48 Nitrostat SL ASDIRECTED PRN angina Pantoprazole Sodium 40 mg 11/04/17 07:00 11/04/17 06:42 Protonix PO 40 mg DAILY@0700 YANN Administration Rosuvastatin Calcium 10 mg 11/03/17 21:00 11/03/17 21:17 Crestor PO 10 mg BEDTIME YANN Administration Sodium Chloride 10 ml 11/03/17 15:25 11/03/17 15:43 Saline Flush FLUSH 10 ml ASDIRECTED PRN Administration Keep Vein Open Tramadol HCl 50 mg 11/03/17 20:48 Ultram PO Q6H PRN Pain Discontinued Medications Generic Name Dose Route Start Last Admin Trade Name Marlee PRN Reason Stop Dose Admin Sodium Chloride 1,000 mls @ 125 mls/hr 11/03/17 15:30 11/03/17 15:44 Normal Saline IV 125 mls/hr ASDIRECTED YANN Administration Magnesium Sulfate 2 gm/ Premix 50 mls @ 25 mls/hr 11/03/17 16:53 11/03/17 17: 11 IV 11/03/17 18:52 25 mls/hr ONETIME ONE Administration Amiodarone HCl 150 mg/ 103 mls @ 600 mls/hr 11/03/17 18:16 11/03/17 18:55 Dextrose/Water IV 11/03/17 18:26 600 mls/hr .BOLUS ONE Administration Magnesium Sulfate 2 gm/ Premix 50 mls @ 25 mls/hr 11/03/17 20:53 11/03/17 21: 15 IV 11/03/17 22:52 25 mls/hr ONETIME ONE Administration Potassium Chloride 40 meq 11/03/17 21:08 11/03/17 21:23 Klor-Con M20 PO 11/03/17 21:09 40 meq ONETIME ONE Administration - Re-Assessments/Exams Free Text/Narrative Re-Assessment/Exam: Patient currently in atrial fibrillation at a rate of 106 variable. Vital signs are stable. Patient recently underwent stent placement 2 this past Sunday at [facility]. Stent was placed in the LAD and also in the circumflex. She was just discharged home yesterday. Had episode of atrial fibrillation with RVR on while undergoing physical therapy. Administered Lopressor IV with resolution. She is currently on amiodarone 4 mg twice a day 5 days decreased to 20 mg twice a day. Currently denies any chest pain with exertion. She is short of breath with exertion and notes her heart rate increases to the 130s. IV established with normal saline. Initial labs and studies include: CBC, chem 14, CRP, d-dimer, magnesium, pro-BMP , coag studies, UA, CK-MB, chest x-ray one view, and EKG. Troponin will be obtained knowing that this most likely will be elevated with recent procedure. CXR: no acute findings noted. Final interpretation is pending. Reviewed with Dr. Carnes. 3122 DDimer 3.39. Patient has extensive bruising noted to the left inguinal region from recent cut down while undergoing stent placement. She is on eliquis 2.5mg twice a day. No pain to the posterior lower legs. EKG interpretation with left bundle branch block at a rate of 111 variable. Prior EKG noted left bundle-branch as well. Again patient recently had a stent placed to the LAD. Labs reviewed: Potassium 3.4, creatinine 1.5, mg 1.4, GFR 33, Troponin <0.017, CRP 9.9, and BNP 652. Ordered mag 2 grams IV. UA has not been collected. Patient did get up to use the commode and the heart rate was in the 120s. She is short of breath. No UA results. 1723 I did speak with Cardiology [facility]. This was Dr. Torres. He recommended starting the patient on digoxin and admit to the hospital here. [address] Scanlon and she does not believe this is appropriate. Requested amiodarone 150mg IV. Admit to the ICU. 182 UA negative for infection. Departure - Departure Time of Disposition: 18:19 Disposition: Admitted As Inpatient 66 Condition: Fair Clinical Impression: Hypomagnesemia, Hypokalemia Atrial fibrillation Qualifiers: Atrial fibrillation type: paroxysmal Qualified Code(s): I48.0 - Paroxysmal atrial fibrillation - My Orders Last 24 Hours: My Active Orders 11/03/17 15:25 Cardiac Monitoring [RC] . DIRECTED Sodium Chloride 0.9% [Saline Flush] 10 ml FLUSH ASDIRECTED PRN Peripheral IV Insertion Adult [OM.PC] Stat 11/03/17 15:26 EKG Documentation Completion [RC] STAT Chest 1V Frontal [CR] Stat 11/03/17 17:15 UA W/MICROSCOPIC [URIN] Stat - Assessment/Plan Last 24 Hours: My Active Orders 11/03/17 15:25 Cardiac Monitoring [RC] . DIRECTED Sodium Chloride 0.9% [Saline Flush] 10 ml FLUSH ASDIRECTED PRN Peripheral IV Insertion Adult [OM.PC] Stat 11/03/17 15:26 EKG Documentation Completion [RC] STAT Chest 1V Frontal [CR] Stat 11/03/17 17:15 UA W/MICROSCOPIC [URIN] Stat
[2017-11-03] MEDS ORDERED: Magnesium Sulfate/Water 2 GM in Premix Bag 1 BAG IV ONE ×2 (16:53→20:53)
[2017-11-03] MEDS ORDERED: Amiodarone 150 MG in Dextrose 5% in Water 100 ML IV ONE ×2 (18:16)
[2017-11-03] MEDS ORDERED: traMADol 50 MG Tab PO PRN (20:48)
[2017-11-03] MEDS ORDERED: Nitroglycerin 0.4 MG Tab.SL SL PRN (20:48)
[2017-11-03] MEDS ORDERED: hydrALAZINE 20 MG/ML SDV IVPUSH PRN (20:51)
[2017-11-03] MEDS ORDERED: Metoprolol Tartrate 5 MG/5 ML SDV IVPUSH PRN (20:58)
--- NOTE | 2017-11-03 20:59 | PCM.HP ---
H&P History of Present Illness - General Date of Service: 11/03/17 Admit Problem/Dx: Admission Diagnosis/Problem Admission Diagnosis/Problem Atrial fibrillation Source of Information: Patient, Family, Provider History Limitations: Reports: No Limitations - History of Present Illness Initial Comments - Free Text/Narative: 86 year old female known to ED, presented roughly 5 days prior to this admission with progressive SOB with activity as well as at rest. Was transferred to [facility] October 24, [address] [facility] was unable to accommodate the transfer. The patient had been diuresed in the ED, and prior to discharge home on that occasion ambulated in the Emergency department. She remained short of breath which resulted in the aforementioned transfer to [place]. She was subsequently taken for cardiac catheterization after an abnormal Lexiscan study that documented a severe, large reversible defect. Unfortunately her prior revascularization was not amenable to PCI. Also a redo CABG was not a possibility due to age and co-morbidities. Cath findings of [place] coronaries included severe three vessel disease; bypass grafts were occluded including SVG -LCX and presumably SVG-RCA, unfortunately the WILKERSON-LAD was essentially nonfunctional (ie diminutive). The patient underwent PCI with an Impella. The number of TAMRA is not available. She is currently on Plavix, it is unknown if Brillinta was a choice or utilized in the acute setting. The cath report was not available at the time of patient assessment, the findings as noted are per the discharge summary. She now presents with palpitations associated with SOB; she denies chest pain. The patient was discharged from [facility] less than 24 hours prior to this admission. She voiced frustration about the recent discharge from after stating that her heart doctor had mentioned she would be monitored one additional day. She stated, "I felt like I was pushed out." The patient is in A Fib with RVR; her rate is 140 BPM. She has been started on IV Amiodarone in the ED. And will be admitted to the ICU per protocol. Onset of Symptoms: Reports: Sudden Symptom Onset Date: 12/02/17 Duration of Symptoms: Reports: Hour(s):, Getting Worse Location: Reports: Chest Quality: Reports: Same as Previous Episode Severity: Moderate Improves with: Reports: Medication Worsens with: Reports: Movement Associated Symptoms: Reports: Nausea/Vomiting, Shortness of Breath, Weakness - Related Data Allergies/Adverse Reactions: Allergies Allergy/AdvReac Type Severity Reaction Status Date / Time aminolevulinic acid HCl Allergy Cannot Verified 10/24/17 10:50 [From Levulan] Remember atropine Allergy Swelling Verified 10/24/17 10:50 cerivastatin sodium AdvReac Paralysis Verified 10/24/17 10:50 [From Baycol] morphine AdvReac Chest Pain Verified 10/24/17 10:50 Home Medications: Home Meds Apixaban [Eliquis] 2.5 mg PO BID 11/03/17 [History] Aspirin [Adult Low Dose Aspirin EC] 81 mg PO DAILY 11/03/17 [History] Clopidogrel [Plavix] 75 mg PO DAILY 11/03/17 [History] Cyanocobalamin (Vitamin B-12) [Vitamin B-12] 1,000 mcg PO DAILY 11/03/17 [ History] Denosumab [Prolia] 60 mg INJECT Q6M 11/03/17 [History] Furosemide 40 mg PO BID 11/03/17 [History] Nitroglycerin 0.4 mg SL ASDIRECTED PRN 11/03/17 [History] Pantoprazole Sodium [Protonix] 40 mg PO DAILY 11/03/17 [History] Rosuvastatin [Crestor] 10 mg PO BEDTIME 11/03/17 [History] traMADol [Ultram] 50 mg PO Q6H PRN 11/03/17 [History] Amiodarone [Cordarone] 400 mg PO BIDPC #120 tablet 11/07/17 [Rx] Cephalexin [Keflex] 500 mg PO Q12H #10 cap 11/07/17 [Rx] Magnesium Oxide 800 mg PO DAILY #60 tablet 11/07/17 [Rx] Metoprolol Succinate [Toprol XL] 12.5 mg PO DAILY #30 tab.er 11/07/17 [Rx] Past Medical History HEENT History: Reports: Other (See Below) Other HEENT History: wears glasses, has hearing aids, upper plate Cardiovascular History: Reports: Afib, Heart Failure, Hypertension, PA, Stents, Other (See Below) Other Cardiovascular History: ASCVD, CHF; LAD and circumflex stents placed on October 31 at [facility] per dr. 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 [employer] History: Reports: Musculoskeletal History: Reports: Back Pain, Chronic, Other (See Below) Other Musculoskeletal History: bunion, compression fracture, spinal stenosis Neurological History: Reports: None Psychiatric History: Reports: None Endocrine/Metabolic History: Reports: Hyperthyroidism, Osteoporosis Hematologic History: Reports: Anemia, Idiopathic Thrombocytopenia Oncologic (Cancer) History: Reports: Basal Cell Carcinoma, Other (See Below) Other Oncologic History: skin cancer Dermatologic History: Reports: Melanoma Other Dermatologic History: back of right leg, basal cell carcinoma on face, actinic keratosis - Infectious Disease History Infectious Disease History: Reports: Chicken Pox, Measles, Mumps - Past Surgical History HEENT Surgical History: Reports: Cataract Surgery Cardiovascular Surgical History: Reports: Coronary Artery Bypass, Other (See Below) Other Cardiovascular Surgeries/Procedures: angioplasty Respiratory Surgical History: Reports: None GI Surgical History: Reports: Cholecystectomy, Colonoscopy, Other (See Below) Other GI Surgeries/Procedures: splenectomy Female Surgical History: Reports: None Endocrine Surgical History: Reports: None Neurological Surgical History: Reports: None Musculoskeletal Surgical History: Reports: Other (See Below) Other Musculoskeletal Surgeries/Procedures:: back surgery, 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, foot surgery Oncologic Surgical History: Reports: None Dermatological Surgical History: Reports: None, Skin Biopsy Social & Family History - Family History Family Medical History: Noncontributory HEENT: Reports: Cataract Cardiac: Reports: PA : Reports: Renal Calculus, Other (See Below) Other Family History: Glomerular Nephritis Musculoskeletal: Reports: Back pain, Chronic Neurological: Reports: CVA Endocrine/Metabolic: Reports: None Oncologic: Reports: Brain - Tobacco Use Smoking Status *Q: Never Smoker - Caffeine Use Caffeine Use: Reports: Coffee, Soda Caffeine Use Comment: one cup of coffee in the mornings. - Recreational Drug Use Recreational Drug Use: No - Living Situation & Occupation Living situation: Reports: Occupation: Retired H&P Review of Systems - Review of Systems: Review Of Systems: See Below General: Reports: Weakness, Fatigue HEENT: Reports: No Symptoms Pulmonary: Reports: Shortness of Breath Cardiovascular: Reports: Palpitations, Lightheadedness Gastrointestinal: Reports: No Symptoms Genitourinary: Reports: No Symptoms Musculoskeletal: Reports: No Symptoms Skin: Reports: No Symptoms Psychiatric: Reports: No Symptoms Neurological: Reports: No Symptoms Hematologic/Lymphatic: Reports: No Symptoms Immunologic: Reports: No Symptoms Exam - Exam Exam: See Below - Vital Signs Vital Signs: Last Vital Signs Temp 36.4 C 11/03/17 15:01 Pulse 112 H 11/03/17 15:01 Resp 20 11/03/17 15:01 BP 105/67 11/03/17 18:55 Pulse Ox 97 11/03/17 15:01 Weight: 82.146 kg - Exam Quality Assessment: Supplemental Oxygen, DVT Prophylaxis General: Alert, Oriented, Cooperative HEENT: Conjunctiva Clear, Nares Patent, Normal Nasal Septum, Pupils Equal, Pupils Reactive, PERRLA Neck: Trachea Midline Lungs: Normal Respiratory Effort, Decreased Breath Sounds Cardiovascular: Regular Rate, Irregular Rhythm, Tachycardia GI/Abdominal Exam: Normal Bowel Sounds, Soft, Non-Tender, No Organomegaly, No Distention (Female) Exam: Deferred Rectal (Female) Exam: Deferred Back Exam: Normal Inspection Extremities: Normal Inspection, Normal Range of Motion, Non-Tender, No Pedal Edema Skin: Warm Neurological: Cranial Nerves Intact Neuro Extensive - Mental Status: Alert, Oriented x3, Normal Mood/Affect, Normal Cognition, Memory Intact Neuro Extensive - Motor, Sensory, Reflexes: CN II-XII Intact Psychiatric: Alert, Normal Affect, Normal Mood - Patient Data Lab Results Last 24 hrs: Laboratory Results - last 24 hr 11/03/17 11/03/17 11/03/17 Range/Units 15:19 15:19 15:19 WBC 11.05 H (3.98-10.04) K/mm3 RBC 3.50 L (3.98-5.22) M/mm3 Hgb 10.5 L (11.2-15.7) gm/L Hct 32.3 L (34.1-44.9) % MCV 92.3 (79.4-94.8) fl MCH 30.0 (25.6-32.2) pg MCHC 32.5 (32.2-35.5) g/dl RDW Std Deviation 46.6 H (36.4-46.3) fL Plt Count 230 (182-369) K/mm3 MPV 11.0 (9.4-12.3) fl Neut % (Auto) 46.9 (34.0-71.1) % Lymph % (Auto) 37.3 (19.3-51.7) % [place] % (Auto) 11.8 (4.7-12.5) % Eos % (Auto) 3.3 (0.7-5.8) Baso % (Auto) 0.5 (0.1-1.2) % Neut # (Auto) 5.19 (1.56-6.13) K/mm3 Lymph # (Auto) 4.12 H (1.18-3.74) K/mm3 [place] # (Auto) 1.30 H (0.24-0.36) K/mm3 Eos # (Auto) 0.37 H (0.04-0.36) K/mm3 Baso # (Auto) 0.05 (0.01-0.08) K/mm3 Manual Slide Review Normal smear PT 11.1 (9.5-12.1) SECONDS INR 1.02 APTT 27 (24-31) SECONDS D-Dimer, Quantitative 3.39 H (0.19-0.50) mg/L Sodium 137 (136-145) mEq/L Potassium 3.4 L (3.5-5.1) mEq/L Chloride 101 (98-107) mEq/L Carbon Dioxide 25 (21-32) mEq/L Anion Gap 14.4 (5-15) BUN 18 (7-18) mg/dL Creatinine 1.5 H (0.55-1.02) mg/dL Est Cr Clr Drug Dosing 22.27 mL/min Estimated GFR (MDRD) 33 (>60) mL/min BUN/Creatinine Ratio 12.0 L (14-18) Glucose 118 H (83-115) mg/dL Calcium 8.4 L (8.5-10.1) mg/dL Magnesium 1.4 L (1.8-2.4) mg/dl Total Bilirubin 1.0 (0.2-1.0) mg/dL AST 20 (15-37) U/L ALT 14 (14-59) U/L Alkaline Phosphatase 72 (46-116) U/L CK-MB (CK-2) 0.6 (0-3.6) ng/ml Troponin I < 0.017 (0.00-0.056) ng/mL C-Reactive Protein 9.9 H* (<1.0) mg/dL NT-Pro-B Natriuret Pep (0-450) pg/mL Total Protein 6.5 (6.4-8.2) g/dl Albumin 2.6 L (3.4-5.0) g/dl Globulin 3.9 gm/dL Albumin/Globulin Ratio 0.7 L (1-2) Urine Color (Yellow) Urine Appearance (Clear) Urine pH (5.0-8.0) Ur Specific [place] (1.005-1.030) Urine Protein (Negative) Urine Glucose (UA) (Negative) Urine Ketones (Negative) Urine Occult Blood (Negative) Urine Nitrite (Negative) Urine Bilirubin (Negative) Urine Urobilinogen (0.2-1.0) Ur Leukocyte Esterase (Negative) Urine RBC (0-5) /hpf Urine WBC (0-5) /hpf Ur Epithelial Cells (0-5) /hpf Urine Bacteria (FEW) /hpf Urine Mucus (FEW) /hpf 11/03/17 11/03/17 Range/Units 15:19 17:15 WBC (3.98-10.04) K/mm3 RBC (3.98-5.22) M/mm3 Hgb (11.2-15.7) gm/L Hct (34.1-44.9) % MCV (79.4-94.8) fl MCH (25.6-32.2) pg MCHC (32.2-35.5) g/dl RDW Std Deviation (36.4-46.3) fL Plt Count (182-369) K/mm3 MPV (9.4-12.3) fl Neut % (Auto) (34.0-71.1) % Lymph % (Auto) (19.3-51.7) % [place] % (Auto) (4.7-12.5) % Eos % (Auto) (0.7-5.8) Baso % (Auto) (0.1-1.2) % Neut # (Auto) (1.56-6.13) K/mm3 Lymph # (Auto) (1.18-3.74) K/mm3 [place] # (Auto) (0.24-0.36) K/mm3 Eos # (Auto) (0.04-0.36) K/mm3 Baso # (Auto) (0.01-0.08) K/mm3 Manual Slide Review PT (9.5-12.1) SECONDS INR APTT (24-31) SECONDS D-Dimer, Quantitative (0.19-0.50) mg/L Sodium (136-145) mEq/L Potassium (3.5-5.1) mEq/L Chloride (98-107) mEq/L Carbon Dioxide (21-32) mEq/L Anion Gap (5-15) BUN (7-18) mg/dL Creatinine (0.55-1.02) mg/dL Est Cr Clr Drug Dosing mL/min Estimated GFR (MDRD) (>60) mL/min BUN/Creatinine Ratio (14-18) Glucose (83-115) mg/dL Calcium (8.5-10.1) mg/dL Magnesium (1.8-2.4) mg/dl Total Bilirubin (0.2-1.0) mg/dL AST (15-37) U/L ALT (14-59) U/L Alkaline Phosphatase (46-116) U/L CK-MB (CK-2) (0-3.6) ng/ml Troponin I (0.00-0.056) ng/mL C-Reactive Protein (<1.0) mg/dL NT-Pro-B Natriuret Pep 652 H (0-450) pg/mL Total Protein (6.4-8.2) g/dl Albumin (3.4-5.0) g/dl Globulin gm/dL Albumin/Globulin Ratio (1-2) Urine Color Light yellow (Yellow) Urine Appearance Clear (Clear) Urine pH 6.5 (5.0-8.0) Ur Specific [place] 1.010 (1.005-1.030) Urine Protein Negative (Negative) Urine Glucose (UA) Negative (Negative) Urine Ketones Negative (Negative) Urine Occult Blood Negative (Negative) Urine Nitrite Negative (Negative) Urine Bilirubin Negative (Negative) Urine Urobilinogen 0.2 (0.2-1.0) Ur Leukocyte Esterase Trace H (Negative) Urine RBC 0-5 (0-5) /hpf Urine WBC 0-5 (0-5) /hpf Ur Epithelial Cells 0-5 (0-5) /hpf Urine Bacteria Not seen (FEW) /hpf Urine Mucus Not seen (FEW) /hpf Result Diagrams: 11/06/17 06:35 11/06/17 06:35 - Problem List (1) Hypertension SNOMED Code(s): 52249699 ICD Code: I10 - ESSENTIAL (PRIMARY) HYPERTENSION Status: Chronic (2) Hypokalemia SNOMED Code(s): 87227890 ICD Code: E87.6 - HYPOKALEMIA Status: Acute (3) Hypomagnesemia SNOMED Code(s): 362517029 ICD Code: E83.42 - HYPOMAGNESEMIA Status: Acute (4) Acute exacerbation of CHF (congestive heart failure) SNOMED Code(s): 65141596 ICD Code: I50.9 - HEART FAILURE, UNSPECIFIED Status: Chronic Qualifiers: Heart failure type: unspecified Qualified Code(s): I50.9 - Heart failure, unspecified (5) Atrial fibrillation with RVR SNOMED Code(s): 870423195396579 ICD Code: I48.91 - UNSPECIFIED ATRIAL FIBRILLATION Status: Acute Priority : High (6) GERD (gastroesophageal reflux disease) SNOMED Code(s): 131205136 ICD Code: K21.9 - GASTRO-ESOPHAGEAL REFLUX DISEASE WITHOUT ESOPHAGITIS Status: Chronic Qualifiers: Esophagitis presence: esophagitis presence not specified Qualified Code(s) : K21.9 - Gastro-esophageal reflux disease without esophagitis (7) Diastolic CHF, chronic SNOMED Code(s): 231504675, 872778863 ICD Code: I50.32 - CHRONIC DIASTOLIC (CONGESTIVE) HEART FAILURE Status: Chronic Problem List Initiated/Reviewed/Updated: Yes Orders Last 24hrs: Active Orders 24 hr Category Date Time Status Patient Status [ADT] Routine ADT 11/03/17 19:56 Active Cardiac Monitoring [RC] . DIRECTED Care 11/03/17 15:25 Active EKG Documentation Completion [RC] STAT Care 11/03/17 15:26 Active Peripheral IV Care [RC] . DIRECTED Care 11/03/17 15:26 Active CXR [Chest 2V] [CR] Routine Exams 11/05/17 10:00 Ordered Chest 1V Frontal [CR] Stat Exams 11/03/17 15:26 Taken BMP [BASIC METABOLIC PANEL,BMP] [CHEM] DAILY Lab 11/04/17 05:00 Ordered BMP [BASIC METABOLIC PANEL,BMP] [CHEM] DAILY Lab 11/05/17 05:00 Ordered BMP [BASIC METABOLIC PANEL,BMP] [CHEM] DAILY Lab 11/06/17 05:00 Ordered CBC WITH AUTO DIFF [HEME] DAILY Lab 11/04/17 05:00 Ordered CBC WITH AUTO DIFF [HEME] DAILY Lab 11/05/17 05:00 Ordered CBC WITH AUTO DIFF [HEME] DAILY Lab 11/06/17 05:00 Ordered MAGNESIUM [CHEM] DAILY Lab 11/04/17 05:00 Ordered MAGNESIUM [CHEM] DAILY Lab 11/05/17 05:00 Ordered MAGNESIUM [CHEM] DAILY Lab 11/06/17 05:00 Ordered TROPONIN I [CHEM] Routine Lab 11/04/17 05:00 Ordered UA W/MICROSCOPIC [URIN] Stat Lab 11/03/17 17:15 Ordered Amiodarone [Cordarone] Med 11/03/17 21:00 Ordered 400 mg PO BID Apixaban Med 11/03/17 21:00 Ordered 2.5 mg PO BID Aspirin [Halfprin] Med 11/04/17 09:00 Ordered 81 mg PO DAILY Cephalexin [Keflex] Med 11/03/17 21:00 Ordered 500 mg PO Q12H Clopidogrel [Plavix] Med 11/03/17 21:00 Ordered 75 mg PO DAILY Furosemide [Lasix] Med 11/03/17 21:00 Ordered 40 mg PO BID Magnesium Oxide Med 11/04/17 09:00 Ordered 800 mg PO DAILY Magnesium Sulfate/Water [Magnesium Sulfate 2 GM in Med 11/03/17 20:53 Ordered Water 50 ML] 2 gm Premix Bag 1 bag IV ONETIME Metoprolol Tartrate [Lopressor] Med 11/03/17 20:58 Ordered 5 mg IVPUSH Q6H PRN Nitroglycerin [Nitrostat] Med 11/03/17 20:48 Ordered 0.4 mg SL ASDIRECTED PRN Pantoprazole [ProTONIX] Med 11/04/17 09:00 Ordered 40 mg PO DAILY Rosuvastatin [Crestor] Med 11/03/17 21:00 Ordered 10 mg PO BEDTIME Sodium Chloride 0.9% [Saline Flush] Med 11/03/17 15:25 Active 10 ml FLUSH ASDIRECTED PRN hydrALAZINE [Apresoline] Med 11/03/17 20:51 Ordered 20 mg IVPUSH Q8H PRN traMADol [Ultram] Med 11/03/17 20:48 Ordered 50 mg PO Q6H PRN Peripheral IV Insertion Adult [OM.PC] Stat Oth 11/03/17 15:25 Ordered Medication Orders Amiodarone HCl (Cordarone) 400 mg PO BID YANN Aspirin (Halfprin) 81 mg PO DAILY YANN Clopidogrel Bisulfate (Plavix) 75 mg PO DAILY YANN Furosemide (Lasix) 40 mg PO BID YANN Hydralazine HCl (Apresoline) 20 mg IVPUSH Q8H PRN PRN Reason: Hypertension Magnesium Sulfate 2 gm/ Premix 50 mls @ 25 mls/hr IV ONETIME ONE Stop: 11/03/17 22:52 Nitroglycerin (Nitrostat) 0.4 mg SL ASDIRECTED PRN PRN Reason: angina Non-Formulary Medication (Apixaban) 2.5 mg PO BID YANN Pantoprazole Sodium (Protonix) 40 mg PO DAILY YANN Rosuvastatin Calcium (Crestor) 10 mg PO BEDTIME YANN Sodium Chloride (Saline Flush) 10 ml FLUSH ASDIRECTED PRN PRN Reason: Keep Vein Open Last Admin: 11/03/17 15:43 Dose: 10 ml Tramadol HCl (Ultram) 50 mg PO Q6H PRN PRN Reason: Pain Assessment/Plan Comment:: Impression: A Fib with RVR s/p IV Amiodarone bolus, now in sinus rhythm CABG (SVG-LCx/SVG-RCA-->occluded; WILKERSON-LAD diminutive) Positive Lexiscan nuclear study *CAD, S/P PCI left coronary system +/- RCA on circulatory assist device HeFpEF, adjusted diuretics pre-DC [facility] Abnormal electrolytes AUTI, Bactrim DS as OP. Chronic HTN HLD LBBB Plan: ICU per A Fib protocol IV Amiodarone as needed; adjust oral Amiodarone taper Continue renal dose Eliquis BB reduced dose as prescribed at DC Change ATB to Keflex with renal dose adjustment Daily Labs Home meds DVT/GI prophylaxis Cardiac rehab at DC
[2017-11-03] MEDS ORDERED: Potassium Chloride 20 MEQ Tab.ER PO ONE (21:08)
[2017-11-03] MEDS ORDERED: Acetaminophen 325 MG Tab PO PRN (21:12)
[2017-11-03] MEDS: Amiodarone 200 MG Tab PO SCH (21:17)
[2017-11-03] MEDS: Rosuvastatin 10 MG Tab PO SCH (21:17)
[2017-11-03] MEDS: Apixaban 5 MG Tab PO SCH (21:17)
[2017-11-03] MEDS: Cephalexin 500 MG Cap PO SCH (21:18)
[2017-11-04] MEDS: Pantoprazole 40 MG Tab.CR PO SCH (06:42)
[2017-11-04] MEDS: Furosemide 20 MG Tab PO SCH ×2 (06:42→13:52)
[2017-11-04] MEDS: Cephalexin 500 MG Cap PO SCH ×2 (08:44→21:10)
[2017-11-04] MEDS: Magnesium Oxide 400 MG Tab PO SCH (08:44)
[2017-11-04] MEDS: Aspirin 81 MG Tab.EC PO SCH (08:44)
[2017-11-04] MEDS: Clopidogrel 75 MG Tab PO SCH (08:44)
[2017-11-04] MEDS: Apixaban 5 MG Tab PO SCH ×2 (08:45→21:08)
[2017-11-04] MEDS: Amiodarone 200 MG Tab PO SCH ×2 (08:45→21:09)
--- NOTE | 2017-11-04 18:33 | PCM.PN ---
- General Info Date of Service: 11/04/17 Functional Status: Reports: Pain Controlled, Tolerating Diet, Urinating - Review of Systems General: Reports: Weakness HEENT: Reports: No Symptoms Pulmonary: Reports: No Symptoms Cardiovascular: Reports: No Symptoms Gastrointestinal: Reports: No Symptoms Genitourinary: Reports: No Symptoms Musculoskeletal: Reports: No Symptoms Skin: Reports: No Symptoms Neurological: Reports: No Symptoms Psychiatric: Reports: No Symptoms - Patient Data Vitals - Most Recent: Last Vital Signs Temp 36.7 C 11/04/17 12:00 Pulse 112 H 11/03/17 15:01 Resp 19 11/04/17 16:00 BP 139/83 11/04/17 16:00 Pulse Ox 96 11/04/17 16:00 Weight - Most Recent: 82.871 kg I&O - Last 24 Hours: Intake & Output 11/04/17 11/04/17 11/04/17 06:59 14:59 22:59 Intake Total 1050 600 Output Total 700 Balance 350 600 Lab Results Last 24 Hours: Laboratory Results - last 24 hr 11/04/17 11/04/17 11/04/17 Range/Units 05:30 05:30 08:20 WBC 8.78 (3.98-10.04) K/mm3 RBC 3.06 L (3.98-5.22) M/mm3 Hgb 9.3 L (11.2-15.7) gm/L Hct 28.4 L (34.1-44.9) % MCV 92.8 (79.4-94.8) fl MCH 30.4 (25.6-32.2) pg MCHC 32.7 (32.2-35.5) g/dl RDW Std Deviation 47.9 H (36.4-46.3) fL Plt Count 223 (182-369) K/mm3 MPV 11.4 (9.4-12.3) fl Neut % (Auto) 50.2 (34.0-71.1) % Lymph % (Auto) 29.6 (19.3-51.7) % [place] % (Auto) 13.9 H (4.7-12.5) % Eos % (Auto) 5.5 (0.7-5.8) Baso % (Auto) 0.6 (0.1-1.2) % Neut # (Auto) 4.41 (1.56-6.13) K/mm3 Lymph # (Auto) 2.60 (1.18-3.74) K/mm3 [place] # (Auto) 1.22 H (0.24-0.36) K/mm3 Eos # (Auto) 0.48 H (0.04-0.36) K/mm3 Baso # (Auto) 0.05 (0.01-0.08) K/mm3 Sodium 138 (136-145) mEq/L Potassium 4.2 (3.5-5.1) mEq/L Chloride 105 (98-107) mEq/L Carbon Dioxide 25 (21-32) mEq/L Anion Gap 12.2 (5-15) BUN 18 (7-18) mg/dL Creatinine 1.1 H (0.55-1.02) mg/dL Est Cr Clr Drug Dosing 30.37 mL/min Estimated GFR (MDRD) 47 (>60) mL/min BUN/Creatinine Ratio 16.4 (14-18) Glucose 106 (83-115) mg/dL Calcium 7.8 L (8.5-10.1) mg/dL Magnesium 2.5 H (1.8-2.4) mg/dl Troponin I 0.025 (0.00-0.056) ng/mL NT-Pro-B Natriuret Pep 627 H (0-450) pg/mL Med Orders - Current: Current Medications Acetaminophen (Tylenol) 650 mg PO Q4H PRN PRN Reason: Pain Last Admin: 11/03/17 21:24 Dose: 650 mg Amiodarone HCl (Cordarone) 400 mg PO BID [facility] Last Admin: 11/04/17 08:45 Dose: 400 mg Apixaban (Eliquis) 2.5 mg PO BID [facility] Last Admin: 11/04/17 08:45 Dose: 2.5 mg Aspirin (Halfprin) 81 mg PO DAILY [facility] Last Admin: 11/04/17 08:44 Dose: 81 mg Cephalexin (Keflex) 500 mg PO Q12H [facility] Last Admin: 11/04/17 08:44 Dose: 500 mg Clopidogrel Bisulfate (Plavix) 75 mg PO DAILY [facility] Last Admin: 11/04/17 08:44 Dose: 75 mg Furosemide (Lasix) 40 mg PO BIDDIURETIC [facility] Last Admin: 11/04/17 13:52 Dose: 40 mg Hydralazine HCl (Apresoline) 20 mg IVPUSH Q8H PRN PRN Reason: Hypertension Magnesium Oxide (Magnesium Oxide) 800 mg PO DAILY [facility] Last Admin: 11/04/17 08:44 Dose: 800 mg Metoprolol Tartrate (Lopressor) 5 mg IVPUSH Q6H PRN PRN Reason: heart rate>120 Nitroglycerin (Nitrostat) 0.4 mg SL ASDIRECTED PRN PRN Reason: angina Pantoprazole Sodium (Protonix) 40 mg PO DAILY@0700 [facility] Last Admin: 11/04/17 06:42 Dose: 40 mg Rosuvastatin Calcium (Crestor) 10 mg PO BEDTIME [facility] Last Admin: 11/03/17 21:17 Dose: 10 mg Sodium Chloride (Saline Flush) 10 ml FLUSH ASDIRECTED PRN PRN Reason: Keep Vein Open Last Admin: 11/03/17 15:43 Dose: 10 ml Tramadol HCl (Ultram) 50 mg PO Q6H PRN PRN Reason: Pain Discontinued Medications Sodium Chloride (Normal Saline) 1,000 mls @ 125 mls/hr IV ASDIRECTED [facility] Last Admin: 11/03/17 15:44 Dose: 125 mls/hr Magnesium Sulfate 2 gm/ Premix 50 mls @ 25 mls/hr IV ONETIME ONE Stop: 11/03/17 18:52 Last Admin: 11/03/17 17:11 Dose: 25 mls/hr Amiodarone HCl 150 mg/ (Dextrose/Water) 103 mls @ 600 mls/hr IV .BOLUS ONE Stop: 11/03/17 18:26 Last Admin: 11/03/17 18:55 Dose: 600 mls/hr Magnesium Sulfate 2 gm/ Premix 50 mls @ 25 mls/hr IV ONETIME ONE Stop: 11/03/17 22:52 Last Admin: 11/03/17 21:15 Dose: 25 mls/hr Potassium Chloride (Klor-Con M20) 40 meq PO ONETIME ONE Stop: 11/03/17 21:09 Last Admin: 11/03/17 21:23 Dose: 40 meq - Exam Quality Assessment: Supplemental Oxygen, DVT Prophylaxis General: Alert, Oriented, Cooperative, No Acute Distress HEENT: Pupils Equal, Pupils Reactive, EOMI Neck: Trachea Midline, No JVD Lungs: Normal Respiratory Effort Cardiovascular: Regular Rate, Regular Rhythm GI/Abdominal Exam: Normal Bowel Sounds, Soft, Non-Tender, No Organomegaly (Female) Exam: Deferred Back Exam: Normal Inspection Extremities: Normal Inspection, Normal Capillary Refill Skin: Warm Neurological: No New Focal Deficit, Normal Gait, Normal Speech Psy/Mental Status: Alert, Normal Affect, Normal Mood - Problem List Review Problem List Initiated/Reviewed/Updated: Yes - My Orders Last 24 Hours: My Active Orders 11/03/17 20:45 EKG 12 Lead [EK] Routine 11/03/17 20:48 Nitroglycerin [Nitrostat] 0.4 mg SL ASDIRECTED PRN traMADol [Ultram] 50 mg PO Q6H PRN 11/03/17 20:51 hydrALAZINE [Apresoline] 20 mg IVPUSH Q8H PRN 11/03/17 20:58 Metoprolol Tartrate [Lopressor] 5 mg IVPUSH Q6H PRN 11/03/17 21:00 Amiodarone [Cordarone] 400 mg PO BID Apixaban [Eliquis] 2.5 mg PO BID Cephalexin [Keflex] 500 mg PO Q12H Rosuvastatin [Crestor] 10 mg PO BEDTIME 11/03/17 21:12 Acetaminophen [Tylenol] 650 mg PO Q4H PRN 11/03/17 21:25 EKG Documentation Completion [RC] ASDIRECTED 11/04/17 06:00 Furosemide [Lasix] 40 mg PO BIDDIURETIC 11/04/17 07:00 Pantoprazole [ProTONIX] 40 mg PO DAILY@0700 11/04/17 09:00 Aspirin [Halfprin] 81 mg PO DAILY Clopidogrel [Plavix] 75 mg PO DAILY Magnesium Oxide 800 mg PO DAILY 11/04/17 10:42 Patient Status [ADT] Routine 11/04/17 15:16 Resuscitation Status Routine 11/04/17 Breakfast Heart Healthy Diet [DIET] 11/05/17 05:00 BMP [BASIC METABOLIC PANEL,BMP] [CHEM] DAILY CBC WITH AUTO DIFF [HEME] DAILY MAGNESIUM [CHEM] DAILY 11/05/17 10:00 CXR [Chest 2V] [CR] Routine 11/06/17 05:00 BMP [BASIC METABOLIC PANEL,BMP] [CHEM] DAILY CBC WITH AUTO DIFF [HEME] DAILY MAGNESIUM [CHEM] DAILY - Plan Plan:: Impression: A Fib with RVR s/p IV Amiodarone bolus, now in sinus rhythm CABG (SVG-LCx/SVG-RCA-->occluded; WILKERSON-LAD diminutive) Positive Lexiscan nuclear study *CAD, S/P PCI left coronary system +/- RCA on circulatory assist device HeFpEF, adjusted diuretics pre-DC AlcantarMychal Abnormal electrolytes--correct K, Mg AUTI, Bactrim DS as OP-->stopped; change to Keflex 500 mg BID. Chronic HTN HLD LBBB Plan: ICU per A Fib protocol, transfer to [facility] telemetry 24-48 hours IV Amiodarone as needed; adjust oral Amiodarone taper Continue renal dose Eliquis 2.5 mg BID BB reduced dose as prescribed at DC Change ATB to Keflex with renal dose adjustment Daily Labs Home meds DVT/GI prophylaxis Cardiac rehab at [facility] Consult PT/OT for Sunday, 11/05.
[2017-11-04] MEDS: Rosuvastatin 10 MG Tab PO SCH (21:09)
[2017-11-05] MEDS: Furosemide 20 MG Tab PO SCH ×2 (06:09→13:10)
[2017-11-05] MEDS: Pantoprazole 40 MG Tab.CR PO SCH (06:09)
--- NOTE | 2017-11-05 07:29 | CR ---
Chest: Portable view of the chest was obtained. Comparison: Prior chest x-ray of 10/24/17. Heart is slightly enlarged. Widening of the superior mediastinum is seen which is stable. Previous sternotomy for CABG is seen. Lung markings are mildly increased which appear to be stable. Bony structures are osteopenic. Prior cholecystectomy is noted. Impression: 1. Stable findings. Nothing acute is appreciated on portable chest x-ray. Diagnostic code #2
[2017-11-05] MEDS: Aspirin 81 MG Tab.EC PO SCH (08:32)
[2017-11-05] MEDS: Magnesium Oxide 400 MG Tab PO SCH (08:32)
[2017-11-05] MEDS: Cephalexin 500 MG Cap PO SCH ×2 (08:32→21:09)
[2017-11-05] MEDS: Clopidogrel 75 MG Tab PO SCH (08:32)
[2017-11-05] MEDS: Apixaban 5 MG Tab PO SCH ×2 (08:33→21:09)
[2017-11-05] MEDS: Amiodarone 200 MG Tab PO SCH ×2 (08:33→21:09)
--- NOTE | 2017-11-05 09:29 | CR ---
Chest: Two views of the chest are obtained. Comparison: Prior chest x-ray of 11/03/17. Heart size at the upper limits of normal. Tortuous thoracic aorta is seen. Parenchymal density is noted within the upper right lung next to the mediastinum or possibly representing mediastinal widening. This finding is stable from previous exams. Lung markings are mildly increased which appear stable from previous exam. No acute parenchymal densities are seen. Impression: 1. Findings as noted above. No significant change from previous study is seen. Diagnostic code #2
[2017-11-05] MEDS: Rosuvastatin 10 MG Tab PO SCH (21:09)
[2017-11-06] MEDS: Furosemide 20 MG Tab PO SCH ×2 (06:43→14:11)
[2017-11-06] MEDS: Pantoprazole 40 MG Tab.CR PO SCH (06:43)
[2017-11-06] MEDS: Amiodarone 200 MG Tab PO SCH ×2 (08:12→20:19)
[2017-11-06] MEDS: Apixaban 5 MG Tab PO SCH ×2 (08:12→20:20)
[2017-11-06] MEDS: Magnesium Oxide 400 MG Tab PO SCH (08:13)
[2017-11-06] MEDS: Clopidogrel 75 MG Tab PO SCH (08:13)
[2017-11-06] MEDS: Cephalexin 500 MG Cap PO SCH ×2 (08:13→20:20)
[2017-11-06] MEDS: Aspirin 81 MG Tab.EC PO SCH (08:13)
[2017-11-06] MEDS ORDERED: Metoprolol Tartrate 25 MG Tab PO ONE (14:06)
--- NOTE | 2017-11-06 14:19 | PCM.PN ---
- General Info Date of Service: 11/05/17 Functional Status: Reports: Tolerating Diet, Ambulating, Urinating - Review of Systems General: Reports: No Symptoms HEENT: Reports: No Symptoms Pulmonary: Reports: No Symptoms Cardiovascular: Reports: No Symptoms Gastrointestinal: Reports: No Symptoms Genitourinary: Reports: No Symptoms Musculoskeletal: Reports: No Symptoms Skin: Reports: No Symptoms Neurological: Reports: No Symptoms Psychiatric: Reports: No Symptoms - Patient Data Vitals - Most Recent: Last Vital Signs Temp 37.3 C 11/05/17 15:34 Pulse 72 11/06/17 14:12 Resp 14 11/06/17 07:59 BP 114/54 L 11/06/17 14:12 Pulse Ox 98 11/06/17 07:59 Weight - Most Recent: 79.861 kg I&O - Last 24 Hours: Intake & Output 11/05/17 11/06/17 11/06/17 22:59 06:59 14:59 Intake Total 1200 1400 180 Output Total 1250 1400 Balance -50 0 180 Lab Results Last 24 Hours: Laboratory Results - last 24 hr 11/06/17 11/06/17 Range/Units 06:35 06:35 WBC 8.35 (3.98-10.04) K/mm3 RBC 3.23 L (3.98-5.22) M/mm3 Hgb 10.0 L (11.2-15.7) gm/L Hct 30.1 L (34.1-44.9) % MCV 93.2 (79.4-94.8) fl MCH 31.0 (25.6-32.2) pg MCHC 33.2 (32.2-35.5) g/dl RDW Std Deviation 48.2 H (36.4-46.3) fL Plt Count 309 (182-369) K/mm3 MPV 10.9 (9.4-12.3) fl Neut % (Auto) 39.4 (34.0-71.1) % Lymph % (Auto) 37.4 (19.3-51.7) % [place] % (Auto) 16.5 H (4.7-12.5) % Eos % (Auto) 5.7 (0.7-5.8) Baso % (Auto) 0.8 (0.1-1.2) % Neut # (Auto) 3.28 (1.56-6.13) K/mm3 Lymph # (Auto) 3.12 (1.18-3.74) K/mm3 [place] # (Auto) 1.38 H (0.24-0.36) K/mm3 Eos # (Auto) 0.48 H (0.04-0.36) K/mm3 Baso # (Auto) 0.07 (0.01-0.08) K/mm3 Manual Slide Review Normal smear Sodium 138 (136-145) mEq/L Potassium 3.9 (3.5-5.1) mEq/L Chloride 103 (98-107) mEq/L Carbon Dioxide 28 (21-32) mEq/L Anion Gap 10.9 (5-15) BUN 14 (7-18) mg/dL Creatinine 0.9 (0.55-1.02) mg/dL Est Cr Clr Drug Dosing 37.12 mL/min Estimated GFR (MDRD) 59 (>60) mL/min BUN/Creatinine Ratio 15.6 (14-18) Glucose 103 (83-115) mg/dL Calcium 8.7 (8.5-10.1) mg/dL Magnesium 2.0 (1.8-2.4) mg/dl Med Orders - Current: Current Medications Acetaminophen (Tylenol) 650 mg PO Q4H PRN PRN Reason: Pain Last Admin: 11/03/17 21:24 Dose: 650 mg Amiodarone HCl (Cordarone) 400 mg PO BID [facility] Last Admin: 11/06/17 08:12 Dose: 400 mg Apixaban (Eliquis) 2.5 mg PO BID [facility] Last Admin: 11/06/17 08:12 Dose: 2.5 mg Aspirin (Halfprin) 81 mg PO DAILY [facility] Last Admin: 11/06/17 08:13 Dose: 81 mg Cephalexin (Keflex) 500 mg PO Q12H [facility] Last Admin: 11/06/17 08:13 Dose: 500 mg Clopidogrel Bisulfate (Plavix) 75 mg PO DAILY [facility] Last Admin: 11/06/17 08:13 Dose: 75 mg Furosemide (Lasix) 40 mg PO BIDDIURETIC [facility] Last Admin: 11/06/17 14:11 Dose: 40 mg Hydralazine HCl (Apresoline) 20 mg IVPUSH Q8H PRN PRN Reason: Hypertension Magnesium Oxide (Magnesium Oxide) 800 mg PO DAILY [facility] Last Admin: 11/06/17 08:13 Dose: 800 mg Metoprolol Succinate (Toprol Xl) 12.5 mg PO DAILY [facility] Metoprolol Tartrate (Lopressor) 5 mg IVPUSH Q6H PRN PRN Reason: heart rate>120 Nitroglycerin (Nitrostat) 0.4 mg SL ASDIRECTED PRN PRN Reason: angina Pantoprazole Sodium (Protonix) 40 mg PO DAILY@0700 [facility] Last Admin: 11/06/17 06:43 Dose: 40 mg Rosuvastatin Calcium (Crestor) 10 mg PO BEDTIME [facility] Last Admin: 11/05/17 21:09 Dose: 10 mg Sodium Chloride (Saline Flush) 10 ml FLUSH ASDIRECTED PRN PRN Reason: Keep Vein Open Last Admin: 11/03/17 15:43 Dose: 10 ml Tramadol HCl (Ultram) 50 mg PO Q6H PRN PRN Reason: Pain Discontinued Medications Sodium Chloride (Normal Saline) 1,000 mls @ 125 mls/hr IV ASDIRECTED [facility] Last Admin: 11/03/17 15:44 Dose: 125 mls/hr Magnesium Sulfate 2 gm/ Premix 50 mls @ 25 mls/hr IV ONETIME ONE Stop: 11/03/17 18:52 Last Admin: 11/03/17 17:11 Dose: 25 mls/hr Amiodarone HCl 150 mg/ (Dextrose/Water) 103 mls @ 600 mls/hr IV .BOLUS ONE Stop: 11/03/17 18:26 Last Admin: 11/03/17 18:55 Dose: 600 mls/hr Magnesium Sulfate 2 gm/ Premix 50 mls @ 25 mls/hr IV ONETIME ONE Stop: 11/03/17 22:52 Last Admin: 11/03/17 21:15 Dose: 25 mls/hr Metoprolol Tartrate (Lopressor) 12.5 mg PO DAILY ONE Stop: 11/06/17 14:07 Last Admin: 11/06/17 14:12 Dose: 12.5 mg Potassium Chloride (Klor-Con M20) 40 meq PO ONETIME ONE Stop: 11/03/17 21:09 Last Admin: 11/03/17 21:23 Dose: 40 meq - Exam Quality Assessment: Supplemental Oxygen (as needed), DVT Prophylaxis General: Alert, Oriented, Cooperative, No Acute Distress HEENT: Pupils Equal, Pupils Reactive, EOMI Neck: Trachea Midline Lungs: Normal Respiratory Effort Cardiovascular: Regular Rate, Regular Rhythm GI/Abdominal Exam: Normal Bowel Sounds, Soft, Non-Tender, No Organomegaly, No Distention (Female) Exam: Deferred Back Exam: Normal Inspection Extremities: Normal Inspection, Non-Tender, Normal Capillary Refill Skin: Warm Neurological: No New Focal Deficit, Normal Gait, Normal Speech Psy/Mental Status: Alert, Normal Affect, Normal Mood - Problem List Review Problem List Initiated/Reviewed/Updated: Yes - My Orders Last 24 Hours: My Active Orders 11/07/17 11:00 Metoprolol Succinate [Toprol XL] 12.5 mg PO DAILY - Plan Plan:: Impression: Hx of PAF; A Fib with RVR s/p IV Amiodarone bolus, now in sinus rhythm CABG (SVG-LCx/SVG-RCA-->occluded; WILKERSON-LAD diminutive) Positive Lexiscan nuclear study *CAD, S/P PCI left coronary system +/- RCA on circulatory assist device HeFpEF, adjusted diuretics pre-DC AlcantarMychal; LVEF >55% Abnormal electrolytes--correct K, Mg AUTI, Bactrim DS as OP-->stopped; change to Keflex 500 mg BID. Chronic HTN HLD LBBB Plan: ICU per A Fib protocol, transfer to [place] telemetry 24-48 hours IV Amiodarone as needed; adjust oral Amiodarone taper; 400 mg BID for 2 weeks, 400 mg daily for 2 weeks earlier adjustment as needed after clinic assessments. Eliquis 2.5 mg BID BB reduced dose as prescribed at DC Slight increase in fluid load, diurese as needed. Change ATB to Keflex with renal dose adjustment Daily Labs Home meds DVT/GI prophylaxis Cardiac rehab at DC Consult PT/OT current activity tolerated, increase ambulation before DC
--- NOTE | 2017-11-06 14:20 | PCM.PN ---
- General Info Date of Service: 11/06/17 Subjective Update: Restart Toprol XL 12.5 mg at noon daily, will continue Amiodarone 400 mg BID discussed with family and patient. Patient feels stronger and more confident; was able to see her great, great grandson yesterday in the nursery. Functional Status: Reports: Pain Controlled, Tolerating Diet, Ambulating, Urinating - Review of Systems General: Reports: No Symptoms HEENT: Reports: No Symptoms Pulmonary: Reports: No Symptoms Cardiovascular: Reports: No Symptoms Gastrointestinal: Reports: No Symptoms Genitourinary: Reports: No Symptoms Musculoskeletal: Reports: No Symptoms Skin: Reports: No Symptoms Neurological: Reports: No Symptoms Psychiatric: Reports: No Symptoms - Patient Data Vitals - Most Recent: Last Vital Signs Temp 37.3 C 11/05/17 15:34 Pulse 72 11/06/17 14:12 Resp 14 11/06/17 07:59 BP 114/54 L 11/06/17 14:12 Pulse Ox 98 11/06/17 07:59 Weight - Most Recent: 79.861 kg I&O - Last 24 Hours: Intake & Output 11/05/17 11/06/17 11/06/17 22:59 06:59 14:59 Intake Total 1200 1400 180 Output Total 1250 1400 Balance -50 0 180 Lab Results Last 24 Hours: Laboratory Results - last 24 hr 11/06/17 11/06/17 Range/Units 06:35 06:35 WBC 8.35 (3.98-10.04) K/mm3 RBC 3.23 L (3.98-5.22) M/mm3 Hgb 10.0 L (11.2-15.7) gm/L Hct 30.1 L (34.1-44.9) % MCV 93.2 (79.4-94.8) fl MCH 31.0 (25.6-32.2) pg MCHC 33.2 (32.2-35.5) g/dl RDW Std Deviation 48.2 H (36.4-46.3) fL Plt Count 309 (182-369) K/mm3 MPV 10.9 (9.4-12.3) fl Neut % (Auto) 39.4 (34.0-71.1) % Lymph % (Auto) 37.4 (19.3-51.7) % [place] % (Auto) 16.5 H (4.7-12.5) % Eos % (Auto) 5.7 (0.7-5.8) Baso % (Auto) 0.8 (0.1-1.2) % Neut # (Auto) 3.28 (1.56-6.13) K/mm3 Lymph # (Auto) 3.12 (1.18-3.74) K/mm3 [place] # (Auto) 1.38 H (0.24-0.36) K/mm3 Eos # (Auto) 0.48 H (0.04-0.36) K/mm3 Baso # (Auto) 0.07 (0.01-0.08) K/mm3 Manual Slide Review Normal smear Sodium 138 (136-145) mEq/L Potassium 3.9 (3.5-5.1) mEq/L Chloride 103 (98-107) mEq/L Carbon Dioxide 28 (21-32) mEq/L Anion Gap 10.9 (5-15) BUN 14 (7-18) mg/dL Creatinine 0.9 (0.55-1.02) mg/dL Est Cr Clr Drug Dosing 37.12 mL/min Estimated GFR (MDRD) 59 (>60) mL/min BUN/Creatinine Ratio 15.6 (14-18) Glucose 103 (83-115) mg/dL Calcium 8.7 (8.5-10.1) mg/dL Magnesium 2.0 (1.8-2.4) mg/dl Med Orders - Current: Current Medications Acetaminophen (Tylenol) 650 mg PO Q4H PRN PRN Reason: Pain Last Admin: 11/03/17 21:24 Dose: 650 mg Amiodarone HCl (Cordarone) 400 mg PO BID [facility] Last Admin: 11/06/17 08:12 Dose: 400 mg Apixaban (Eliquis) 2.5 mg PO BID [facility] Last Admin: 11/06/17 08:12 Dose: 2.5 mg Aspirin (Halfprin) 81 mg PO DAILY [facility] Last Admin: 11/06/17 08:13 Dose: 81 mg Cephalexin (Keflex) 500 mg PO Q12H [facility] Last Admin: 11/06/17 08:13 Dose: 500 mg Clopidogrel Bisulfate (Plavix) 75 mg PO DAILY [facility] Last Admin: 11/06/17 08:13 Dose: 75 mg Furosemide (Lasix) 40 mg PO BIDDIURETIC [facility] Last Admin: 11/06/17 14:11 Dose: 40 mg Hydralazine HCl (Apresoline) 20 mg IVPUSH Q8H PRN PRN Reason: Hypertension Magnesium Oxide (Magnesium Oxide) 800 mg PO DAILY [facility] Last Admin: 11/06/17 08:13 Dose: 800 mg Metoprolol Succinate (Toprol Xl) 12.5 mg PO DAILY [facility] Metoprolol Tartrate (Lopressor) 5 mg IVPUSH Q6H PRN PRN Reason: heart rate>120 Nitroglycerin (Nitrostat) 0.4 mg SL ASDIRECTED PRN PRN Reason: angina Pantoprazole Sodium (Protonix) 40 mg PO DAILY@0700 [facility] Last Admin: 11/06/17 06:43 Dose: 40 mg Rosuvastatin Calcium (Crestor) 10 mg PO BEDTIME [facility] Last Admin: 11/05/17 21:09 Dose: 10 mg Sodium Chloride (Saline Flush) 10 ml FLUSH ASDIRECTED PRN PRN Reason: Keep Vein Open Last Admin: 11/03/17 15:43 Dose: 10 ml Tramadol HCl (Ultram) 50 mg PO Q6H PRN PRN Reason: Pain Discontinued Medications Sodium Chloride (Normal Saline) 1,000 mls @ 125 mls/hr IV ASDIRECTED [facility] Last Admin: 11/03/17 15:44 Dose: 125 mls/hr Magnesium Sulfate 2 gm/ Premix 50 mls @ 25 mls/hr IV ONETIME ONE Stop: 11/03/17 18:52 Last Admin: 11/03/17 17:11 Dose: 25 mls/hr Amiodarone HCl 150 mg/ (Dextrose/Water) 103 mls @ 600 mls/hr IV .BOLUS ONE Stop: 11/03/17 18:26 Last Admin: 11/03/17 18:55 Dose: 600 mls/hr Magnesium Sulfate 2 gm/ Premix 50 mls @ 25 mls/hr IV ONETIME ONE Stop: 11/03/17 22:52 Last Admin: 11/03/17 21:15 Dose: 25 mls/hr Metoprolol Tartrate (Lopressor) 12.5 mg PO DAILY ONE Stop: 11/06/17 14:07 Last Admin: 11/06/17 14:12 Dose: 12.5 mg Potassium Chloride (Klor-Con M20) 40 meq PO ONETIME ONE Stop: 11/03/17 21:09 Last Admin: 11/03/17 21:23 Dose: 40 meq - Exam Quality Assessment: DVT Prophylaxis General: Alert, Oriented, Cooperative, No Acute Distress HEENT: Pupils Equal, Pupils Reactive, EOMI Neck: Trachea Midline, No JVD Lungs: Clear to Auscultation, Normal Respiratory Effort Cardiovascular: Regular Rate, Regular Rhythm GI/Abdominal Exam: Normal Bowel Sounds, Soft, Non-Tender, No Organomegaly, No Distention (Female) Exam: Deferred Back Exam: Normal Inspection Extremities: Normal Inspection, No Pedal Edema, Normal Capillary Refill Skin: Warm, Dry, Intact Neurological: No New Focal Deficit, Normal Gait, Normal Speech Psy/Mental Status: Alert, Normal Affect, Normal Mood - Problem List Review Problem List Initiated/Reviewed/Updated: Yes - My Orders Last 24 Hours: My Active Orders 11/07/17 11:00 Metoprolol Succinate [Toprol XL] 12.5 mg PO DAILY - Plan Plan:: Impression: Hx of PAF; A Fib with RVR s/p IV Amiodarone bolus, now in sinus rhythm CABG (SVG-LCx/SVG-RCA-->occluded; WILKERSON-LAD diminutive) Positive Lexiscan nuclear study *CAD, S/P PCI left coronary system +/- RCA on circulatory assist device HeFpEF, adjusted diuretics pre-DC Dinesh; LVEF >55% Abnormal electrolytes--correct K, Mg AUTI, Bactrim DS as OP-->stopped; change to Keflex 500 mg BID. Chronic HTN HLD LBBB Plan: ICU per A Fib protocol, transfer to [place] telemetry 24-48 hours IV Amiodarone as needed; adjust oral Amiodarone taper; 400 mg BID for 2 weeks, 400 mg daily for 2 weeks earlier adjustment as needed after clinic assessments. Eliquis 2.5 mg BID BB reduced dose as prescribed at DC Slight increase in fluid load, diurese as needed. Change ATB to Keflex with renal dose adjustment Daily Labs Home meds DVT/GI prophylaxis Cardiac rehab at DC Consult PT/OT current activity tolerated, increase ambulation before DC DC tomorrow, will also order a Holter for 24 hours
[2017-11-06] MEDS: Rosuvastatin 10 MG Tab PO SCH (20:19)
[2017-11-07] MEDS: Furosemide 20 MG Tab PO SCH (06:28)
[2017-11-07] MEDS: Pantoprazole 40 MG Tab.CR PO SCH (06:28)
[2017-11-07] MEDS: Amiodarone 200 MG Tab PO SCH ×3 (08:30→09:51)
[2017-11-07] MEDS: Clopidogrel 75 MG Tab PO SCH (08:30)
[2017-11-07] MEDS: Magnesium Oxide 400 MG Tab PO SCH (08:30)
[2017-11-07] MEDS: Aspirin 81 MG Tab.EC PO SCH (08:30)
[2017-11-07] MEDS: Cephalexin 500 MG Cap PO SCH (08:31)
[2017-11-07] MEDS: Apixaban 5 MG Tab PO SCH (08:31)
--- NOTE | 2017-11-07 10:38 | PCM.DCSUM1 ---
Discharge Summary - Hospital Course Free Text/Narrative:: 86 year old maintained sinus rhythm after adjustment of medication and IV Amiodarone. She was admitted with A Fib with RVR experiencing fatigue, weakness and shortness of breath. Currently she can easily walk several laps in the hospital without difficulty. Prior to admission, she had been treated at [facility] and is S/P PCI without sequelae; today the patient will be discharged to home and will be participating in cardiac rehab as scheduled. A longer Amiodarone taper has been prescribed to maintain sinus rhythm. Consults Physical therapy Occupational therapy Dietary Diagnosis PAF; s/p A Fib with RVR Acute UTI DHF/HeFpEF CAD s/p PCI of point lay ira coronaries on Impella CKD, stage 4 HPI Initial Comments: 86 year old female known to ED, presented roughly 5 days prior to this admission with progressive SOB with activity as well as at rest. Was transferred to [facility] October 24, 2017 after [facility] was unable to accommodate the transfer. The patient had been diuresed in the ED, and prior to discharge home on that occasion ambulated. She remained short of breath which resulted in the aforementioned transfer to [place]. She was subsequently taken for cardiac catheterization after an abnormal Lexiscan study that documented a severe, large reversible defect. Unfortunately her prior revascularization was not amenable to PCI. Also a redo CABG was not a possiblity due to age and co-morbidities. Cath findings of point lay ira coronaries included severe three vessel disease; by pass grafts were occluded including SVG -LCX and presumably SVG-RCA, unfortunately the WILKERSON-LAD is essentially nonfunctional (ie diminutive). The patient underwent PCI with an Impella. The number of TAMRA is not available. She is currently on Plavix, it is unknown if Brillinta was a choice or utilized in the acute setting. The cath report was not available at the time of patient assessment, the findings as noted are per the discharge summary. She now presents with palpitations associated with SOB; she denies chest pain. The patient was discharged from [facility] less than 24 hours prior to admission. She voiced frustration about the recent discharge from [facility] after stating that her heart doctor had mentioned she would be monitored one additional day. The patient is in A Fib with RVR; her rate is 140 BPM. She has been started on IV Amiodarone in the ED. And will be admitted to the ICU per protocol. Diagnosis: Stroke: No - Discharge Data Discharge Date: 11/07/17 Discharge Disposition: Home, Self-Care 01 Condition: Good - Patient Summary/Data Consults: Consultations 11/05/17 10:42 Consult to Occupational Therapy [OT Evaluation and Treatment] [CONS] Routine PT Evaluation and Treatment [CONS] Routine 11/05/17 10:49 Consult to Cardiac Rehabilitation [CONS] Routine - Patient Instructions Diet: Heart Healthy Diet Activity: As Tolerated Showering/Bathing: May Shower Notify Provider of: Fever, Increased Pain, Nausea and/or Vomiting - Discharge Plan Prescriptions/Med Rec: Amiodarone [Cordarone] 400 mg PO BIDPC #120 tablet Cephalexin [Keflex] 500 mg PO Q12H #10 cap Magnesium Oxide 800 mg PO DAILY #60 tablet Metoprolol Succinate [Toprol XL] 12.5 mg PO DAILY #30 tab.er Home Medications: Home Meds Apixaban [Eliquis] 2.5 mg PO BID 11/03/17 [History] Aspirin [Adult Low Dose Aspirin EC] 81 mg PO DAILY 11/03/17 [History] Clopidogrel [Plavix] 75 mg PO DAILY 11/03/17 [History] Cyanocobalamin (Vitamin B-12) [Vitamin B-12] 1,000 mcg PO DAILY 11/03/17 [ History] Denosumab [Prolia] 60 mg INJECT Q6M 11/03/17 [History] Furosemide 40 mg PO BID 11/03/17 [History] Nitroglycerin 0.4 mg SL ASDIRECTED PRN 11/03/17 [History] Pantoprazole Sodium [Protonix] 40 mg PO DAILY 11/03/17 [History] Rosuvastatin [Crestor] 10 mg PO BEDTIME 11/03/17 [History] traMADol [Ultram] 50 mg PO Q6H PRN 11/03/17 [History] Amiodarone [Cordarone] 400 mg PO BIDPC #120 tablet 11/07/17 [Rx] Cephalexin [Keflex] 500 mg PO Q12H #10 cap 11/07/17 [Rx] Magnesium Oxide 800 mg PO DAILY #60 tablet 11/07/17 [Rx] Metoprolol Succinate [Toprol XL] 12.5 mg PO DAILY #30 tab.er 11/07/17 [Rx] Patient Handouts: Heart Failure, [id number] Referrals: Stephen Bass DO [Primary Care Provider] - (Please call and schedule a follow- up appointment with your structural technician, Dr. Bass, on or around December 08 as available. ) Jose Carlos Westfall MD [Physician] - (Please call and schedule a post-hospital admission follow-up appointment with your primary care doctor, Dr. Westfall, within 7 to 10 days. ) - Discharge Summary/Plan Comment DC Time >30 min.: No Discharge Summary/Plan Comment: Impression: Hx of PAF; A Fib with RVR s/p IV Amiodarone bolus, now in sinus rhythm CABG (SVG-LCx/SVG-RCA-->occluded; WILKERSON-LAD diminutive) Positive Lexiscan nuclear study *CAD, S/P PCI left coronary system +/- RCA on circulatory assist device HeFpEF, adjusted diuretics pre-DC Dinesh; LVEF >55% Abnormal electrolytes--correct K, Mg AUTI, Bactrim DS as OP-->stopped; change to Keflex 500 mg BID. Chronic HTN HLD LBBB Plan: ICU per A Fib protocol, transfer to [place] telemetry 24-48 hours IV Amiodarone as needed; adjust oral Amiodarone taper; 400 mg BID for 2 weeks, 400 mg daily for 2 weeks earlier adjustment as needed after clinic assessments. Eliquis 2.5 mg BID BB reduced dose as prescribed at DC Slight increase in fluid load, diurese as needed. Change ATB to Keflex with renal dose adjustment Daily Labs Home meds DVT/GI prophylaxis Cardiac rehab at DC Consult PT/OT current activity tolerated, increase ambulation before DC Holter monitor for 24 hours - General Info Date of Service: 11/03/17 Functional Status: Reports: Pain Controlled, Tolerating Diet, Ambulating, Urinating - Review of Systems General: Reports: No Symptoms HEENT: Reports: No Symptoms Pulmonary: Reports: No Symptoms Cardiovascular: Reports: No Symptoms Gastrointestinal: Reports: No Symptoms Genitourinary: Reports: No Symptoms Musculoskeletal: Reports: No Symptoms Skin: Reports: No Symptoms Neurological: Reports: No Symptoms Psychiatric: Reports: No Symptoms - Patient Data Vitals - Most Recent: Last Vital Signs Temp 36.6 C 11/07/17 08:27 Pulse 68 11/07/17 08:27 Resp 16 11/07/17 08:27 BP 107/62 11/07/17 08:27 Pulse Ox 96 11/07/17 08:27 Weight - Most Recent: 78.653 kg I&O - Last 24 hours: Intake & Output 11/06/17 11/07/17 11/07/17 22:59 06:59 14:59 Intake Total 1120 900 Output Total 1020 1700 Balance 100 -800 Med Orders - Current: Current Medications Acetaminophen (Tylenol) 650 mg PO Q4H PRN PRN Reason: Pain Last Admin: 11/03/17 21:24 Dose: 650 mg Amiodarone HCl (Cordarone) 400 mg PO BID [facility] Last Admin: 11/07/17 09:51 Dose: 200 mg Apixaban (Eliquis) 2.5 mg PO BID [facility] Last Admin: 11/07/17 08:31 Dose: 2.5 mg Aspirin (Halfprin) 81 mg PO DAILY [facility] Last Admin: 11/07/17 08:30 Dose: 81 mg Cephalexin (Keflex) 500 mg PO Q12H [facility] Last Admin: 11/07/17 08:31 Dose: 500 mg Clopidogrel Bisulfate (Plavix) 75 mg PO DAILY [facility] Last Admin: 11/07/17 08:30 Dose: 75 mg Furosemide (Lasix) 40 mg PO BIDDIURETIC [facility] Last Admin: 11/07/17 06:28 Dose: 40 mg Hydralazine HCl (Apresoline) 20 mg IVPUSH Q8H PRN PRN Reason: Hypertension Magnesium Oxide (Magnesium Oxide) 800 mg PO DAILY [facility] Last Admin: 11/07/17 08:30 Dose: 800 mg Metoprolol Succinate (Toprol Xl) 12.5 mg PO Q24H [facility] Metoprolol Tartrate (Lopressor) 5 mg IVPUSH Q6H PRN PRN Reason: heart rate>120 Nitroglycerin (Nitrostat) 0.4 mg SL ASDIRECTED PRN PRN Reason: angina Pantoprazole Sodium (Protonix) 40 mg PO DAILY@0700 [facility] Last Admin: 11/07/17 06:28 Dose: 40 mg Rosuvastatin Calcium (Crestor) 10 mg PO BEDTIME [facility] Last Admin: 11/06/17 20:19 Dose: 10 mg Sodium Chloride (Saline Flush) 10 ml FLUSH ASDIRECTED PRN PRN Reason: Keep Vein Open Last Admin: 11/03/17 15:43 Dose: 10 ml Tramadol HCl (Ultram) 50 mg PO Q6H PRN PRN Reason: Pain Discontinued Medications Sodium Chloride (Normal Saline) 1,000 mls @ 125 mls/hr IV ASDIRECTED YANN Last Admin: 11/03/17 15:44 Dose: 125 mls/hr Magnesium Sulfate 2 gm/ Premix 50 mls @ 25 mls/hr IV ONETIME ONE Stop: 11/03/17 18:52 Last Admin: 11/03/17 17:11 Dose: 25 mls/hr Amiodarone HCl 150 mg/ (Dextrose/Water) 103 mls @ 600 mls/hr IV .BOLUS ONE Stop: 11/03/17 18:26 Last Admin: 11/03/17 18:55 Dose: 600 mls/hr Magnesium Sulfate 2 gm/ Premix 50 mls @ 25 mls/hr IV ONETIME ONE Stop: 11/03/17 22:52 Last Admin: 11/03/17 21:15 Dose: 25 mls/hr Metoprolol Tartrate (Lopressor) 12.5 mg PO DAILY ONE Stop: 11/06/17 14:07 Last Admin: 11/06/17 14:12 Dose: 12.5 mg Potassium Chloride (Klor-Con M20) 40 meq PO ONETIME ONE Stop: 11/03/17 21:09 Last Admin: 11/03/17 21:23 Dose: 40 meq - Exam Quality Assessment: Reports: DVT Prophylaxis General: Reports: Alert, Oriented, Cooperative, No Acute Distress HEENT: Reports: Pupils Equal, Pupils Reactive, EOMI, Mucous Membr. Moist/[place] Neck: Reports: Supple, Trachea Midline, No JVD Lungs: Reports: Clear to Auscultation, Normal Respiratory Effort Cardiovascular: Reports: Regular Rate, Regular Rhythm GI/Abdominal Exam: Normal Bowel Sounds, Soft, Non-Tender, No Organomegaly, No Distention (Female) Exam: Deferred Rectal (Female) Exam: Deferred Back Exam: Reports: Normal Inspection Extremities: Normal Inspection, Normal Range of Motion, Non-Tender, No Pedal Edema, Normal Capillary Refill Skin: Reports: Dry Neurological: Reports: No New Focal Deficit, Normal Gait, Normal Speech Psy/Mental Status: Reports: Alert, Normal Affect, Normal Mood
[2017-11-07] MEDS ORDERED: Metoprolol Succinate 25 MG Tab.ER PO SCH (11:00)
[2017-11-07 11:38] VITALS: BP 116/75
== END 2017-11-07 12:28 | disposition home or self-care (01) | DRG 308 ==
LOC: SUPCPDRO 14:58 → JD.ED 14:58 → JD.ICU 19:56 → JD.MS 19:56 → UNDOADMIN 19:56 → JD.MS 11-04 14:15
PROVIDERS: ADMIT Internal Medicine Cardiovascular Disease; ATTEND Internal Medicine Cardiovascular Disease
DX: I48.0 Paroxysmal atrial fibrillation (principal); I50.33 Acute on chronic diastolic (congestive) heart failure; D69.3 Immune thrombocytopenic purpura; N39.0 Urinary tract infection, site not specified; I50.9 Heart failure, unspecified; I11.0 Hypertensive heart disease with heart failure; I13.0 Hypertensive heart and chronic kidney disease with heart failure and stage 1 through stage 4 chronic kidney disease, or unspecified chronic kidney disease; N18.4 Chronic kidney disease, stage 4 (severe); E83.42 Hypomagnesemia; E87.6 Hypokalemia; I25.10 Atherosclerotic heart disease of native coronary artery without angina pectoris; G89.29 Other chronic pain; M54.9 Dorsalgia, unspecified; M48.00 Spinal stenosis, site unspecified; D64.9 Anemia, unspecified; E05.90 Thyrotoxicosis, unspecified without thyrotoxic crisis or storm; K21.9 Gastro-esophageal reflux disease without esophagitis; I44.7 Left bundle-branch block, unspecified; I25.2 Old myocardial infarction; Z90.49 Acquired absence of other specified parts of digestive tract; Z90.81 Acquired absence of spleen; Z95.5 Presence of coronary angioplasty implant and graft; Z88.6 Allergy status to analgesic agent; Z88.8 Allergy status to other drugs, medicaments and biological substances; Z87.440 Personal history of urinary (tract) infections; Z79.82 Long term (current) use of aspirin; L57.0 Actinic keratosis; R53.81 Other malaise; R06.02 Shortness of breath; R53.1 Weakness; R06.00 Dyspnea, unspecified; Z79.899 Other long term (current) drug therapy; Z85.828 Personal history of other malignant neoplasm of skin; Z85.820 Personal history of malignant melanoma of skin; Z79.01 Long term (current) use of anticoagulants; Z79.02 Long term (current) use of antithrombotics/antiplatelets; Z95.1 Presence of aortocoronary bypass graft
CPT/HCPCS: 36415; 71045; 80053; 81001; 82553; 83735; 83880; 84484; 85025; 85379; 85610; 85730; 86140; 93005; 96361; 96365; 96366; 96375; 99285; J0282; J7040; J7050; J7060; 71046; 71046-26; 80048; 97161-GP; 97165-GO; 97530-GO; A9270-GY; J3475

== ENCOUNTER 2018-02-07 11:09 | Emergency (ER) | payer MEDICARE, BC ==
--- NOTE | 2018-02-07 11:37 | EDM.PDOC ---
ED HPI GENERAL MEDICAL PROBLEM - General Chief Complaint: Cardiovascular Problem Stated Complaint: CHEST PAIN, WEAKNESS,BALANCE IS OFF Time Seen by Provider: 02/07/18 11:36 Source of Information: Reports: Patient History Limitations: Reports: No Limitations - History of Present Illness INITIAL COMMENTS - FREE TEXT/NARRATIVE: 87-year-old female presents the ED complaining of central chest heaviness that is worse with certain movements for the last day or 2. She states when she went to cardiac rehabilitation a few days ago she usually can do 25 minutes of exercise and this time she developed chest heaviness and shortness breath within 5-8 minutes. Cerner stop her rehabilitation. She has a nonproductive cough but it seems to be quite sparse. Denies any hemoptysis. He is on Eliquis twice a day. She is also on Plavix and aspirin daily due to having 2 stents placed in October of this last year. A triple bypass carried out in December 2016. Apparently all 3 grafts failed. Patient has known significant congestive failure. She was recently on an increased dose of Lasix using 80 mg in the morning and 40 mg at noon. She is now back to 80 mg in the morning only. Over the last week she is appreciated no significant weight gain. His appreciated increased chest heaviness and worsening pain on exertion. She has not taken any nitroglycerin tablets.. States the heaviness was quite bad during the night and kept her awake 3 times during the night. She therefore elected to come to the ED this morning. On initial examination BP is stable at 136/63. O2 sats are 99% on room air. Onset: Gradual Onset Date: 02/03/18 (Chest discomfort intermittently for the last 5 days. Worse on exertion such as walking and getting dressed.) Duration: Day(s): Location: Reports: Chest (Central chest heaviness.) Quality: Reports: Ache Severity: Moderate Improves with: Reports: Rest Worsens with: Reports: Movement Context: Denies: Activity, Exercise, Lifting, Sick Contact, Trauma, Other Associated Symptoms: Reports: Chest Pain (Intermittent nonproductive cough), Cough, Malaise, Shortness of Breath, Other (No orthopnea or PND.). 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: Other (see below) (No extra medications.) all over chest area Pain Score (Numeric/FACES): 2 - Related Data Allergies Allergy/AdvReac Type Severity Reaction Status Date / Time aminolevulinic acid HCl Allergy Cannot Verified 02/07/18 11:22 [From Levulan] Remember atropine Allergy Swelling Verified 02/07/18 11:22 cerivastatin sodium AdvReac Paralysis Verified 02/07/18 11:22 [From Baycol] morphine AdvReac Chest Pain Verified 02/07/18 11:22 Home Meds: Home Meds Apixaban [Eliquis] 2.5 mg PO BID 11/03/17 [History] Aspirin [Adult Low Dose Aspirin EC] 81 mg PO DAILY 11/03/17 [History] Clopidogrel [Plavix] 75 mg PO DAILY 11/03/17 [History] Cyanocobalamin (Vitamin B-12) [Vitamin B-12] 1,000 mcg PO DAILY 11/03/17 [ History] Denosumab [Prolia] 60 mg INJECT Q6M 11/03/17 [History] Furosemide 40 mg PO BID 11/03/17 [History] Nitroglycerin 0.4 mg SL ASDIRECTED PRN 11/03/17 [History] Pantoprazole Sodium [Protonix] 40 mg PO DAILY 11/03/17 [History] Rosuvastatin [Crestor] 10 mg PO BEDTIME 11/03/17 [History] Amiodarone [Cordarone] 100 mg PO DAILY 11/27/17 [History] Acetaminophen 500 mg PO Q4HR PRN 02/07/18 [History] Isosorbide Mononitrate [Imdur] 30 mg PO DAILY #14 tab.er 02/07/18 [Rx] Metoprolol Succinate [Toprol XL] 12.5 mg PO DAILY 02/07/18 [History] Past Medical History HEENT History: Reports: Other (See Below) Other HEENT History: wears glasses, has hearing aids, upper plate Cardiovascular History: Reports: Afib (History of paroxysmal atrial fibrillation ), Bypass (Triple bypass surgery done in December 2016), CAD, Heart Failure, Hypertension, PR, Stents, Other (See Below) Other Cardiovascular History: ASCVD, CHF; LAD and circumflex stents placed on October [address] [facility] per dr. 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: Musculoskeletal History: Reports: Back Pain, Chronic, Other (See Below) Other Musculoskeletal History: bunion, compression fracture, spinal stenosis Neurological History: Reports: None Psychiatric History: Reports: None Endocrine/Metabolic History: Reports: Hyperthyroidism, Osteoporosis Hematologic History: Reports: Anemia, Idiopathic Thrombocytopenia Oncologic (Cancer) History: Reports: Basal Cell Carcinoma, Other (See Below) Other Oncologic History: skin cancer Dermatologic History: Reports: Melanoma Other Dermatologic History: back of right leg, basal cell carcinoma on face, actinic keratosis - Infectious Disease History Infectious Disease History: Reports: Chicken Pox, Measles, Mumps - Past Surgical History HEENT Surgical History: Reports: Cataract Surgery Cardiovascular Surgical History: Reports: Coronary Artery Bypass, Other (See Below) Other Cardiovascular Surgeries/Procedures: angioplasty Respiratory Surgical History: Reports: None GI Surgical History: Reports: Cholecystectomy, Colonoscopy, Other (See Below) Other GI Surgeries/Procedures: splenectomy Female Surgical History: Reports: None Endocrine Surgical History: Reports: None Neurological Surgical History: Reports: None Musculoskeletal Surgical History: Reports: Other (See Below) Other Musculoskeletal Surgeries/Procedures:: back surgery, 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, foot surgery Oncologic Surgical History: Reports: None Dermatological Surgical History: Reports: None, Skin Biopsy Social & Family History - Family History Family Medical History: Noncontributory HEENT: Reports: Cataract Cardiac: Reports: PR : Reports: Renal Calculus, Other (See Below) Other Family History: Glomerular Nephritis Musculoskeletal: Reports: Back pain, Chronic Neurological: Reports: CVA Endocrine/Metabolic: Reports: None Oncologic: Reports: Brain - Tobacco Use Smoking Status *Q: Never Smoker - Caffeine Use Caffeine Use: Reports: Coffee Caffeine Use Comment: one cup of coffee in the mornings. - Recreational Drug Use Recreational Drug Use: No - Living Situation & Occupation Living situation: Reports: Occupation: Retired ED ROS GENERAL - Review of Systems Review Of Systems: See Below Constitutional: Reports: Malaise, Fatigue. Denies: Fever, Chills, Decreased Appetite, Weight Loss HEENT: Reports: Glasses Respiratory: Reports: Shortness of Breath, Cough. Denies: Wheezing, Pleuritic Chest Pain, Sputum Cardiovascular: Reports: Chest Pain, Dyspnea on Exertion, Edema (Chronic edema both lower extremities but better than it's been.), Lightheadedness, Palpitations (Vocationally). Denies: Blood Pressure Problem, Claudication ( Central chest heaviness see history of present illness), Orthopnea Endocrine: Reports: No Symptoms GI/Abdominal: Reports: Constipation : Reports: Frequency, Incontinence Musculoskeletal: Reports: Back Pain (Both stress and urge components), Joint Pain Skin: Reports: Bruising (Knees hips neck and shoulders at times bruises very easily as she is on Eliquis aspirin and Plavix.) Neurological: Reports: No Symptoms Psychiatric: Reports: No Symptoms Hematologic/Lymphatic: Reports: No Symptoms ED EXAM, GENERAL - Physical Exam Exam: See Below Exam Limited By: No Limitations General Appearance: Alert, WD/WN, No Apparent Distress Eye Exam: Bilateral Eye: Normal Inspection Throat/Mouth: Normal Inspection, Normal Lips, Normal Oropharynx Head: Atraumatic, Normocephalic Neck: Normal Inspection, Supple, Non-Tender, Full Range of Motion. No: Lymphadenopathy (L), Lymphadenopathy (R) Respiratory/Chest: No Accessory Muscle Use, Respiratory Distress (Mild tachypnea 20/m), Rales. No: Wheezing (There are coarse rales throughout both bases worse on the right as compared to the left.) Cardiovascular: Regular Rate, Rhythm, No Gallop, No Murmur, No Rub. No: Normal Peripheral Pulses, No Edema Peripheral Pulses: 1+: Posterior Tibial (L), Posterior Tibial (R), Dorsalis Pedis (L), Dorsalis Pedis (R) GI/Abdominal: Normal Bowel Sounds, Soft, Non-Tender, No Organomegaly, No Abnormal Bruit, No Mass, Pelvis Stable. No: Guarding, Rigid, Rebound Back Exam: No: CVA Tenderness (L), CVA Tenderness (R) Extremities: Non-Tender, Pedal Edema (Increased edema left lower extremity. 2+ at present. 1+ on the right.), Other (Decreased range of motion of the knees and hips due to last arthritic changes) Neurological: Alert, Oriented, CN II-XII Intact, Normal Cognition Psychiatric: Normal Affect, Normal Mood Skin Exam: Warm, Dry, Normal Color, No Rash EKG INTERPRETATION EKG Date: 02/07/18 Time: 11:17 Rhythm: Other (First-degree AV block) Rate (Beats/Min): 72 [place]: LAD-Left [place] Deviation (-19) P-Wave: Enlarged (Left atrial hypertrophy pattern.) QRS: LBBB (Patient has near Q waves in V1 to the 4 compatible with possible old anteroseptal myocardial infarction. There are Q waves in 3 and aVF compatible with old inferior wall myocardial infraction.) ST-T: Other (Diffuse early repolarization pattern skews the ST segment upwards. Not rule out ischemia.) QT: Prolonged (Mildly prolonged) EKG Interpretation Comments: Abnormal ECG Course - Vital Signs Last Recorded V/S: Last Vital Signs Temp 36.3 C 02/07/18 11:10 Pulse 64 02/07/18 11:58 Resp 16 02/07/18 11:58 BP 143/61 H 02/07/18 11:58 Pulse Ox 97 02/07/18 11:58 - Orders/Labs/Meds Orders: Active Orders 24 hr Category Date Time Status EKG Documentation Completion [RC] STAT Care 02/07/18 11:36 Active Labs: Laboratory Tests 02/07/18 02/07/18 02/07/18 Range/Units 11:25 11:25 11:25 WBC 7.66 (3.98-10.04) K/mm3 RBC 4.37 (3.98-5.22) M/mm3 Hgb 13.0 (11.2-15.7) gm/L Hct 40.8 (34.1-44.9) % MCV 93.4 (79.4-94.8) fl MCH 29.7 (25.6-32.2) pg MCHC 31.9 L (32.2-35.5) g/dl RDW Std Deviation 50.3 H (36.4-46.3) fL Plt Count 298 (182-369) K/mm3 MPV 10.9 (9.4-12.3) fl Neutrophils % (Manual) 40 (40-60) % Band Neutrophils % 0 (0-10) % Lymphocytes % (Manual) 47 H (20-40) % Atypical Lymphs % 0 % Monocytes % (Manual) 11 H (2-10) % Eosinophils % (Manual) 0 L (0.7-5.8) % Basophils % (Manual) 2 H (0.1-1.2) Platelet Estimate Adequate RBC Morph Comment Normal PT 11.4 (9.5-12.1) SECONDS INR 1.05 Sodium 138 (136-145) mEq/L Potassium 3.7 (3.5-5.1) mEq/L Chloride 100 (98-107) mEq/L Carbon Dioxide 28 (21-32) mEq/L Anion Gap 13.7 (5-15) BUN 20 H (7-18) mg/dL Creatinine 1.2 H (0.55-1.02) mg/dL Est Cr Clr Drug Dosing 28.52 mL/min Estimated GFR (MDRD) 42 (>60) mL/min BUN/Creatinine Ratio 16.7 (14-18) Glucose 124 H (83-115) mg/dL Calcium 9.4 (8.5-10.1) mg/dL Magnesium 1.8 (1.8-2.4) mg/dl Total Bilirubin 0.3 (0.2-1.0) mg/dL AST 35 (15-37) U/L ALT 12 L (14-59) U/L Alkaline Phosphatase 84 (46-116) U/L CK-MB (CK-2) 0.5 (0-3.6) ng/ml Troponin I 0.032 (0.00-0.056) ng/mL C-Reactive Protein 0.2 (<1.0) mg/dL NT-Pro-B Natriuret Pep (0-450) pg/mL Total Protein 7.5 (6.4-8.2) g/dl Albumin 3.5 (3.4-5.0) g/dl Globulin 4.0 gm/dL Albumin/Globulin Ratio 0.9 L (1-2) 02/07/18 02/07/18 Range/Units 11:25 13:58 WBC (3.98-10.04) K/mm3 RBC (3.98-5.22) M/mm3 Hgb (11.2-15.7) gm/L Hct (34.1-44.9) % MCV (79.4-94.8) fl MCH (25.6-32.2) pg MCHC (32.2-35.5) g/dl RDW Std Deviation (36.4-46.3) fL Plt Count (182-369) K/mm3 MPV (9.4-12.3) fl Neutrophils % (Manual) (40-60) % Band Neutrophils % (0-10) % Lymphocytes % (Manual) (20-40) % Atypical Lymphs % % Monocytes % (Manual) (2-10) % Eosinophils % (Manual) (0.7-5.8) % Basophils % (Manual) (0.1-1.2) Platelet Estimate RBC Morph Comment PT (9.5-12.1) SECONDS INR Sodium (136-145) mEq/L Potassium (3.5-5.1) mEq/L Chloride (98-107) mEq/L Carbon Dioxide (21-32) mEq/L Anion Gap (5-15) BUN (7-18) mg/dL Creatinine (0.55-1.02) mg/dL Est Cr Clr Drug Dosing mL/min Estimated GFR (MDRD) (>60) mL/min BUN/Creatinine Ratio (14-18) Glucose (83-115) mg/dL Calcium (8.5-10.1) mg/dL Magnesium (1.8-2.4) mg/dl Total Bilirubin (0.2-1.0) mg/dL AST (15-37) U/L ALT (14-59) U/L Alkaline Phosphatase (46-116) U/L CK-MB (CK-2) 0.7 (0-3.6) ng/ml Troponin I < 0.017 (0.00-0.056) ng/mL C-Reactive Protein (<1.0) mg/dL NT-Pro-B Natriuret Pep 168 (0-450) pg/mL Total Protein (6.4-8.2) g/dl Albumin (3.4-5.0) g/dl Globulin gm/dL Albumin/Globulin Ratio (1-2) Meds: Medications Discontinued Medications Generic Name Dose Route Start Last Admin Trade Name Freq PRN Reason Stop Dose Admin Furosemide 60 mg 02/07/18 11:46 02/07/18 11:57 Lasix IVPUSH 02/07/18 11:47 60 mg NOW ONE Administration - Radiology Interpretation Free Text/Narrative:: 87-year-old female presents to the ED complaining of chest central heaviness for the last 4-5 days worse on exertion such as dressing herself or walking a short distance. He also could not participate in cardiac rehabilitation like her usual 2 days ago. She only made 5-8 minutes of walking where she normally could walk 25 minutes. Strives the pain as a heaviness in her central chest with no radiation. Associated shortness of breath. Minimal cough or sputum production. Strong history of congestive heart failure. Strong history of coronary disease having had triple bypass in December 2016 and 2 stents placed in October of this year. Patient also recently had her Lasix dose increased for about a week to provide some diuresis. She had 80 mg in the morning and 40 in the noon hour. She's back to 80 mg in the morning only for the last week. On examination she is showing increased jugular venous pulsation. She has got diffuse rales throughout both lower lobes worse on the right as compared to the left. Chronic dependent edema worse on the left leg as compared to the right but apparently overall improved compared to 3 weeks ago. Last cardiac workup will be done. Include cardiac markers magnesium and BNP 1 view chest x-ray to be obtained. Current chest pain is pretty well gone. After this and gives her a very bad headache and will be avoided at this time. - Re-Assessments/Exams Free Text/Narrative Re-Assessment/Exam: 02/07/18 12:07 chest x-ray done portably reveals moderate cardiomegaly with diffuse significant vascular congestion. No obvious pleural effusions are evident. Both costophrenic angles are clear. The trachea is deviated to the right and has been so on many previous x-rays. Suspect due to prominent aortic arch versus a thyroid goiter. The thoracic aorta is fairly tortuous. 02/07/18 12:42 Labs reveal a total white count of 7.66 with 40% neutrophils no bands and 47% lymphocytes i.e. a right shift. Hemoglobin is 13.0 with hematocrit of 40.8. Bili count is 290,000. PT is 11.4 with an INR of 1.05. Sodium 138 with a potassium of 3.7. Cord 100 with a bicarbonate 28. And a gap is 13.7. B1 is 20 with a creatinine 1.2. eGFR is 42.. Glucose is 124. Calcium 9.4. Magnesium 1.8. Liver function normal. CK-MB is 0.5 with a troponin I of 0.032. Protein 0.2. BNP is pending. 02/07/18 13:28 BNP came back at 168 much slower than I had anticipated. I will therefore have repeat cardiac markers done to rule any ischemia since her chief complaint is chest heaviness worsened by exertion. 02/07/18 14:40 second set of cardiac markers are now back. CK-MB fraction is 0.7. T troponin I is less than 0.017. Referred appears that her crackles in both bases are secondary to pulmonary fibrosis. You may not be related to use of amiodarone. She will have to be referred for pulmonary function studies. However her chest pain is that of unstable angina worsened by exertion. I'm going to therefore try her on low-dose Imdur 30mg ER in the hopes of not allowing her blood pressure too much but perhaps helping relieve some of her chest pain. No changes are required at this point time in regards to her Lasix use. Departure - Departure Time of Disposition: 14:45 Disposition: Home, Self-Care 01 Condition: Fair Clinical Impression: Angina pectoris without myocardial infarction Prescriptions: Isosorbide Mononitrate [Imdur] 30 mg PO DAILY #14 tab.er Instructions: Angina Pectoris, [id number] Referrals: Jose Carlos Westfall MD [Primary Care Provider] - Forms: ED Department Discharge Additional Instructions: Evaluation in the emergency him today in regards to developing chest heaviness on exertion such as walking down the [place] or even getting dressed for the last several days. Associated development of shortness of breath. Complete cardiac workup was carried out and there is no sign of any heart attack. There is also no sign of extensive fluid collection within your lungs although when you listen to your lungs it makes it sound like there is. There is evidence therefore that you're developing a lung disease call pulmonary fibrosis which makes crackles in the lungs in the bases. Pulmonary function studies need to be done every 6 months. I believe your chest pain is that of angina which means the heart is being started for oxygen on minimal exertion. I believe this is likely due to some diagonal branches off the main coronary arteries that are plugged up and not delivering adequate blood supply to the heart muscle on exertion. I would therefore wish to try you on a new medication called Imdur 30 mg extended release once daily every morning for the next 2 weeks to see if this alleviates some of the chest discomfort. The only thing else she will need to do is to change your metoprolol 12.5 mg to bedtime use. No changes to be made in Lasix dose at this time. - My Orders Last 24 Hours: My Active Orders 02/07/18 11:36 EKG Documentation Completion [RC] STAT - Assessment/Plan Last 24 Hours: My Active Orders 02/07/18 11:36 EKG Documentation Completion [RC] STAT
[2018-02-07] MEDS ORDERED: Furosemide 40 MG/4 ML VIAL IVPUSH ONE (11:46)
[2018-02-07 12:06] VITALS: BP 143/61
--- NOTE | 2018-02-07 14:53 | CR ---
Chest: Portable view of the chest was obtained. Comparison: Prior chest x-ray of 11/05/17. Heart size is normal for portable technique. Tortuous thoracic aorta is seen. Lung markings are mildly increased which appear chronic. Prior sternotomy is noted. No acute parenchymal changes seen. Bony structures are osteopenic. Impression: 1. Incidental findings. Nothing acute is seen on portable chest x-ray. Diagnostic code #2
== END 2018-02-07 15:14 | disposition home or self-care (01) ==
LOC: JD.ED 11:09
DX: I20.9 Angina pectoris, unspecified (principal); I11.0 Hypertensive heart disease with heart failure; I50.9 Heart failure, unspecified; I25.2 Old myocardial infarction; I48.91 Unspecified atrial fibrillation; E03.9 Hypothyroidism, unspecified; D64.9 Anemia, unspecified; Z79.899 Other long term (current) drug therapy; Z79.82 Long term (current) use of aspirin; Z88.5 Allergy status to narcotic agent; Z88.8 Allergy status to other drugs, medicaments and biological substances
CPT/HCPCS: 36415; 71045; 71045-26; 80053; 82553; 83735; 83880; 84484; 85007; 85027; 85610; 86140; 93005; 93010; 96374; 99285-25; J1940

== ENCOUNTER 2018-09-27 02:23 | Emergency (ER) | payer MEDICARE, BC ==
[2018-09-27 02:33] VITALS: BP 119/58
--- NOTE | 2018-09-27 02:37 | EDM.PDOC ---
ED HPI GENERAL MEDICAL PROBLEM - General Chief Complaint: Chest Pain Stated Complaint: CHEST PRESSURE Time Seen by Provider: 09/27/18 02:32 Source of Information: Reports: Patient History Limitations: Reports: No Limitations - History of Present Illness INITIAL COMMENTS - FREE TEXT/NARRATIVE: 87-year-old female presents to the ED with a couple of bouts of chest pain. Patient states that after supper tonight which was around 1800 hrs. on walking back to the room where they play cards she developed central chest discomfort that lasted perhaps half an hour. She felt that this was quite mild and did not think about taking any nitroglycerin tabs were such for this discomfort. It did go away on its own and she was able to play cards without any issues. She awoke from sleep approximately 0115 hrs. this morning with quite severe central chest pain. He described this as a heavy pressure sensation with no radiation. She then decided that she needed to take a nitroglycerin tablet which she rarely does and it did help although she struggled to get the bottle open. Did give her a bit of a headache. She states it took about 10 minutes before 120 completely and it has not returned. There's been no recent changes to her medications. She is known to have severe coronary disease having had triple bypass carried out approximately 21 months ago. 9 months later she required 2 stents placed because of occlusion of her grafts. And she had 1 more stent placed 2 months ago inside a plugged stent I believe. She remains on baby aspirin daily and Eliquis 2.5 mg twice a day. She denies any cough or feeling any more short of breath than usual. She states her legs aren't any more swollen than normal. No recent changes to any of her medications. Vital signs show she is afebrile. She is in sinus rhythm at 58/m. blood pressure is 119/58. Respiratory to 14 with O2 sats of 95 on room air. Onset: Today Onset Date: 09/27/18 Onset Time: 01:15 (From sleep with quite severe central chest heaviness about 0115 hrs. She decided she would need to take a nitroglycerin tablet and had a good deal of trouble getting the bottle Open) Duration: Minutes: ( She states it lasted about 10 minutes) Location: Reports: Chest (Central chest discomfort with no radiation.) Quality: Reports: Ache, Pressure Severity: Moderate (8 out of 10 when she awoke.) Improves with: Reports: Other (Improved after taking a nitroglycerin tablet sublingually believed to be 0.4 mg strength) Worsens with: Reports: None Context: Denies: Activity, Exercise, Lifting, Sick Contact, Trauma, Other Associated Symptoms: Denies: Confusion, Cough, cough w sputum, Diaphoresis, Fever/Chills, Headaches, Loss of Appetite, Malaise, Nausea/Vomiting, Rash, Seizure, Shortness of Breath, Syncope 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: Other (see below) (Nitro-Tab tonight that relieved her pain.) - Related Data Allergies Allergy/AdvReac Type Severity Reaction Status Date / Time aminolevulinic acid HCl Allergy Cannot Verified 09/27/18 02:40 [From Levulan] Remember atropine Allergy Swelling Verified 09/27/18 02:40 cerivastatin sodium AdvReac Paralysis Verified 09/27/18 02:40 [From Baycol] morphine AdvReac Chest Pain Verified 09/27/18 02:40 Home Meds: Home Meds Apixaban [Eliquis] 2.5 mg PO BID 11/03/17 [History] Aspirin [Adult Low Dose Aspirin EC] 81 mg PO DAILY 11/03/17 [History] Clopidogrel [Plavix] 75 mg PO DAILY 11/03/17 [History] Cyanocobalamin (Vitamin B-12) [Vitamin B-12] 1,000 mcg PO DAILY 11/03/17 [ History] Denosumab [Prolia] 60 mg INJECT Q6M 11/03/17 [History] Furosemide 40 mg PO DAILY 11/03/17 [History] Nitroglycerin 0.4 mg SL ASDIRECTED PRN 11/03/17 [History] Pantoprazole Sodium [Protonix] 40 mg PO DAILY 11/03/17 [History] Rosuvastatin [Crestor] 10 mg PO BEDTIME 11/03/17 [History] Amiodarone [Cordarone] 100 mg PO DAILY 11/27/17 [History] Acetaminophen 500 - 1,000 mg PO Q4HR PRN 02/07/18 [History] Metoprolol Succinate [Toprol XL] 25 mg PO DAILY 02/07/18 [History] Calcium Carb/Vitamin D3/Vit K1 [Viactiv Soft Chew] 1 tab PO BID 09/27/18 [ History] Levothyroxine 25 mcg PO DAILY 09/27/18 [History] Magnesium Chloride [Mag-64] 64 mg PO DAILY 09/27/18 [History] [place]-3/DHA/Epa/Fish Oil [Fish Oil 500 MG Softgel] 500 mg PO DAILY 09/27/18 [ History] Past Medical History HEENT History: Reports: Other (See Below) Other HEENT History: wears glasses, has hearing aids, upper plate Cardiovascular History: Reports: Afib (History of paroxysmal atrial fibrillation ), Bypass (Triple bypass surgery done in December 2016), CAD, Heart Failure, Hypertension, [place], Stents, Other (See Below) Other Cardiovascular History: ASCVD, CHF; LAD and circumflex stents placed on October 31 at [facility] per dr. 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: Reports: Musculoskeletal History: Reports: Back Pain, Chronic, Other (See Below) Other Musculoskeletal History: bunion, compression fracture, spinal stenosis Neurological History: Reports: None Psychiatric History: Reports: None Endocrine/Metabolic History: Reports: Hyperthyroidism, Osteoporosis Hematologic History: Reports: Anemia, Idiopathic Thrombocytopenia Oncologic (Cancer) History: Reports: Basal Cell Carcinoma, Other (See Below) Other Oncologic History: skin cancer Dermatologic History: Reports: Melanoma Other Dermatologic History: back of right leg, basal cell carcinoma on face, actinic keratosis - Infectious Disease History Infectious Disease History: Reports: Chicken Pox, Measles, Mumps - Past Surgical History HEENT Surgical History: Reports: Cataract Surgery Cardiovascular Surgical History: Reports: Coronary Artery Bypass, Other (See Below) Other Cardiovascular Surgeries/Procedures: angioplasty Respiratory Surgical History: Reports: None GI Surgical History: Reports: Cholecystectomy, Colonoscopy, Other (See Below) Other GI Surgeries/Procedures: splenectomy Female Surgical History: Reports: None Endocrine Surgical History: Reports: None Neurological Surgical History: Reports: None Musculoskeletal Surgical History: Reports: Other (See Below) Other Musculoskeletal Surgeries/Procedures:: back surgery, 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 - Living Situation & Occupation Living situation: Reports: Occupation: Retired ED ROS GENERAL - Review of Systems Review Of Systems: See Below Constitutional: Reports: Fatigue. Denies: Fever, Chills, Decreased Appetite, Weight Loss HEENT: Reports: Glasses, Hearing Loss (Mild bilateral hearing loss) Respiratory: Reports: Shortness of Breath. Denies: Wheezing, Pleuritic Chest Pain (On exertion.), Cough, Sputum, Hemoptysis Cardiovascular: Reports: Chest Pain (See history of present illness), Dyspnea on Exertion, Edema (Chronic edema both lower extremities the left leg slightly worse than the right as this is where she had vein harvesting for her bypass.). Denies: Blood Pressure Problem, Claudication, Lightheadedness, Orthopnea Endocrine: Reports: Fatigue GI/Abdominal: Reports: No Symptoms : Reports: Frequency, Incontinence (Both urge and stress components.) Musculoskeletal: Reports: Joint Pain (Neck low back knees and hips at times. Occasionally shoulder pain) Skin: Reports: Bruising Neurological: Reports: No Symptoms (Bruises easily due to being on aliquots and aspirin daily.) Psychiatric: Reports: No Symptoms Hematologic/Lymphatic: Reports: No Symptoms Immunologic: Reports: No Symptoms ED EXAM, GENERAL - Physical Exam Exam: See Below Exam Limited By: No Limitations General Appearance: Alert, WD/WN, No Apparent Distress, Other (She is pain-free at the time of examination. She's alert she's oriented and answers all questions appropriately.) Eye Exam: Bilateral Eye: Normal Inspection (Previous cataract extractions and intraocular lens implants bilaterally.) Throat/Mouth: Normal Inspection, Normal Lips, Normal Oropharynx Head: Atraumatic, Normocephalic Neck: Normal Inspection, Supple, Non-Tender, Full Range of Motion, Limited Range of Motion, Tender Lateral (Evidence of osteophytic changes in her cervical spine.). No: Lymphadenopathy (L), Lymphadenopathy (R) Respiratory/Chest: No Respiratory Distress, Chest Non-Tender, Decreased Breath Sounds (Mildly decreased to both lower lung solorzano.), Rales (Few fine rales at both lung bases. Query pulmonary fibrosis versus CHF.), Other (Well-healed midline sternotomy incision.). No: Respiratory Distress Cardiovascular: Normal Peripheral Pulses, Regular Rate, Rhythm, No Gallop, No Murmur, No Rub Peripheral Pulses: 2+: Posterior Tibial (L), Posterior Tibial (R), Dorsalis Pedis (L), Dorsalis Pedis (R) GI/Abdominal: Normal Bowel Sounds, Soft, Non-Tender, No Organomegaly, No Abnormal Bruit, No Mass, Other (Mildly obese.) Back Exam: Normal Inspection, Full Range of Motion. No: CVA Tenderness (L), CVA Tenderness (R) Extremities: Pedal Edema (She has 2+ pitting edema bilaterally. This mostly as to the mid tib-fib bilaterally slightly worse on the left side as compared to the right.), Other (Evidence of osteophytic changes both knees and hips with limited range of motion.) Neurological: Alert, Oriented, CN II-XII Intact, Normal Cognition Psychiatric: Normal Affect, Normal Mood Skin Exam: Warm, Dry, Intact, Normal Color, No Rash EKG INTERPRETATION EKG Date: 09/27/18 Time: 02:29 Rhythm: Other (Sinus bradycardia) Rate (Beats/Min): 57 Cutler: LAD-Left Cutler Deviation (Mild left axis deviation -20) P-Wave: Present (With first-degree AV block) QRS: Other (There are Q waves in 3 and aVF. Consider old inferior wall myocardial infarction. Likely left ventricular hypertrophy pattern.) ST-T: Other (T-wave inversion in 1 and aVL likely due to reciprocal changes from left ventricular hypertrophy.) QT: Prolonged (Moderately prolonged) EKG Interpretation Comments: Abnormal ECG Course - Vital Signs Last Recorded V/S: Last Vital Signs Temp 36.6 C 09/27/18 02:30 Pulse 58 L 09/27/18 02:30 Resp 14 09/27/18 02:30 BP 119/58 L 09/27/18 02:30 Pulse Ox 95 09/27/18 02:30 - Orders/Labs/Meds Orders: Active Orders 24 hr Category Date Time Status EKG Documentation Completion [RC] STAT Care 09/27/18 02:51 Active EKG Documentation Completion [RC] STAT Care 09/27/18 05:15 Active Chest 1V Frontal [CR] Stat Exams 09/27/18 02:51 Taken Nitroglycerin/D5W [Nitroglycerin 25 MG/D5W 250 ML] Med 09/27/18 04:15 Active 25 mg in 250 ml IV TITRATE Sodium Chloride 0.9% [Normal Saline] 1,000 ml Med 09/27/18 02:45 Active IV ASDIRECTED Medication Orders Sodium Chloride (Normal Saline) 1,000 mls @ 100 mls/hr IV ASDIRECTED YANN Last Admin: 09/27/18 02:58 Dose: 100 mls/hr Nitroglycerin/Dextrose (Nitroglycerin 25 Mg/D5w 250 Ml) 25 mg in 250 mls @ 6 mls/hr IV TITRATE YANN; Protocol Last Titration: 09/27/18 04:48 Dose: 10 mcg/min, 6 mls/hr Admin: 09/27/18 04:21 Dose: 5 mcg/min, 3 mls/hr Labs: Laboratory Tests 09/27/18 09/27/18 09/27/18 Range/Units 03:10 03:10 03:10 WBC 7.54 (3.98-10.04) K/mm3 RBC 4.06 (3.98-5.22) M/mm3 Hgb 12.2 (11.2-15.7) gm/L Hct 38.5 (34.1-44.9) % MCV 94.8 (79.4-94.8) fl MCH 30.0 (25.6-32.2) pg MCHC 31.7 L (32.2-35.5) g/dl RDW Std Deviation 50.9 H (36.4-46.3) fL Plt Count 236 (182-369) K/mm3 MPV 11.0 (9.4-12.3) fl Neutrophils % (Manual) 28 L (40-60) % Band Neutrophils % 0 (0-10) % Lymphocytes % (Manual) 47 H (20-40) % Atypical Lymphs % 5 % Monocytes % (Manual) 10 (2-10) % Eosinophils % (Manual) 8 H (0.7-5.8) % Basophils % (Manual) 2 H (0.1-1.2) Toxic Granulation 1+ slight Platelet Estimate Adequate Plt Morphology Comment See note Hypochromasia 1+ slight Anisocytosis 1+ slight RBC Morph Comment Not Reportable PT 11.3 (9.5-12.1) SECONDS INR 1.04 APTT 25 (24-31) SECONDS Sodium 143 (136-145) mEq/L Potassium 3.7 (3.5-5.1) mEq/L Chloride 105 (98-107) mEq/L Carbon Dioxide 28 (21-32) mEq/L Anion Gap 13.7 (5-15) BUN 25 H (7-18) mg/dL Creatinine 1.2 H (0.55-1.02) mg/dL Est Cr Clr Drug Dosing 28.52 mL/min Estimated GFR (MDRD) 42 (>60) mL/min BUN/Creatinine Ratio 20.8 H (14-18) Glucose 109 (83-115) mg/dL Calcium 8.9 (8.5-10.1) mg/dL Magnesium 1.8 (1.8-2.4) mg/dl Total Bilirubin 0.3 (0.2-1.0) mg/dL AST 31 (15-37) U/L ALT 27 (14-59) U/L Alkaline Phosphatase 76 (46-116) U/L CK-MB (CK-2) 0.9 (0-3.6) ng/ml Troponin I < 0.017 (0.00-0.056) ng/mL C-Reactive Protein < 0.2 (<1.0) mg/dL NT-Pro-B Natriuret Pep (0-450) pg/mL Total Protein 6.5 (6.4-8.2) g/dl Albumin 3.1 L (3.4-5.0) g/dl Globulin 3.4 gm/dL Albumin/Globulin Ratio 0.9 L (1-2) 09/27/18 09/27/18 Range/Units 03:10 05:30 WBC (3.98-10.04) K/mm3 RBC (3.98-5.22) M/mm3 Hgb (11.2-15.7) gm/L Hct (34.1-44.9) % MCV (79.4-94.8) fl MCH (25.6-32.2) pg MCHC (32.2-35.5) g/dl RDW Std Deviation (36.4-46.3) fL Plt Count (182-369) K/mm3 MPV (9.4-12.3) fl Neutrophils % (Manual) (40-60) % Band Neutrophils % (0-10) % Lymphocytes % (Manual) (20-40) % Atypical Lymphs % % Monocytes % (Manual) (2-10) % Eosinophils % (Manual) (0.7-5.8) % Basophils % (Manual) (0.1-1.2) Toxic Granulation Platelet Estimate Plt Morphology Comment Hypochromasia Anisocytosis RBC Morph Comment PT (9.5-12.1) SECONDS INR APTT (24-31) SECONDS Sodium (136-145) mEq/L Potassium (3.5-5.1) mEq/L Chloride (98-107) mEq/L Carbon Dioxide (21-32) mEq/L Anion Gap (5-15) BUN (7-18) mg/dL Creatinine (0.55-1.02) mg/dL Est Cr Clr Drug Dosing mL/min Estimated GFR (MDRD) (>60) mL/min BUN/Creatinine Ratio (14-18) Glucose (83-115) mg/dL Calcium (8.5-10.1) mg/dL Magnesium (1.8-2.4) mg/dl Total Bilirubin (0.2-1.0) mg/dL AST (15-37) U/L ALT (14-59) U/L Alkaline Phosphatase (46-116) U/L CK-MB (CK-2) 0.6 (0-3.6) ng/ml Troponin I < 0.017 (0.00-0.056) ng/mL C-Reactive Protein (<1.0) mg/dL NT-Pro-B Natriuret Pep 234 (0-450) pg/mL Total Protein (6.4-8.2) g/dl Albumin (3.4-5.0) g/dl Globulin gm/dL Albumin/Globulin Ratio (1-2) Meds: Medications Generic Name Dose Route Start Last Admin Trade Name Freq PRN Reason Stop Dose Admin Sodium Chloride 1,000 mls @ 100 mls/hr 09/27/18 02:45 09/27/18 02:58 Normal Saline IV 100 mls/hr ASDIRECTED YANN Administration Nitroglycerin/Dextrose 25 mg in 250 mls @ 6 mls/hr 09/27/18 04:15 09/27/18 04 :48 Nitroglycerin 25 Mg/D5w 250 Ml IV 10 mcg/min TITRATE YANN 6 mls/hr Titration Protocol 10 MCG/MIN Discontinued Medications Generic Name Dose Route Start Last Admin Trade Name Marlee PRN Reason Stop Dose Admin Aspirin 324 mg 09/27/18 02:50 09/27/18 02:58 Aspirin PO 09/27/18 02:51 324 mg ONETIME ONE Administration Fentanyl 25 mcg 09/27/18 05:29 09/27/18 05:42 Sublimaze IVPUSH 09/27/18 05:30 25 mcg ONETIME ONE Administration Metoclopramide HCl 5 mg 09/27/18 05:30 09/27/18 05:40 Reglan IVPUSH 09/27/18 05:31 5 mg ONETIME ONE Administration - Radiology Interpretation Free Text/Narrative:: 87-year-old female presents to the ED having awoken from sleep with quite severe central chest pressure heaviness relieved by nitroglycerin 0.4 mg sublingually 1 dose. She woke up about 0115 hrs. She had about a mild central chest discomfort after supper about 1800 hrs. to 1830 hrs. last evening. He considers to be quite mild discomfort and went away on its own. However when she woke from sleep this morning it was very intense pain and she decided she needed a nitroglycerin tablet. At the time of examination she remains pain-free with stable vital signs. She has a very strong history of coronary disease. ECG does not show any signs of acute ischemia. Plan routine labs including BMP and magnesium levels to be done. One view chest x-ray. Given 4 baby aspirins at this time. Since she has no pain no nitroglycerin drip will be started at this time. - Re-Assessments/Exams Free Text/Narrative Re-Assessment/Exam: 09/27/18 03:30 portable chest x-ray reveals poor inspirational view. Mild cardiomegaly. 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 Mild diffuse vascular congestion pattern unchanged from previous chest x-ray. 09/27/18 03:53 Labs reveal a white count of 7.54. Differential is 28% neutrophils no bands but 47% lymphocytes i.e. a significant right shift. Hemoglobin is 12.2 with hematocrit of 38.5. Platelet count is 236,000. The slides suggest 1+ toxic granulation pattern. 1+ hypochromasia and 1+ anisocytosis. PT is 11.3 with an INR 1.04. PTT is 25. Sodium 143 with a potassium of 3.7. Chloride 105 with a bicarbonate of 28. Anion gap is 13.7. BUN is 25 creatinine is 1.2. GFR is 42 by a stage III chronic kidney disease. Glucose is 109 with a calcium of 8.9. Magnesium is normal at 1.8. Liver function is normal. CK-MB fraction is 0.9 with a troponin I of less than 0.017. C-reactive protein is less than 0.2. BNP is 234. Total protein 6.5 with an albumin fraction slightly low at 3.1. 09/27/18 04:10 as I went in to discuss the results of the labs with the patient she indicated that she was starting to have central chest pressure discomfort once again. Will therefore start her on low-dose nitroglycerin drip at 5 mcg/m. Current blood pressure is 117/43. Sinus bradycardia at 51/min. She therefore appears to be having acute coronary syndrome or unstable angina. I will repeat her enzymes at 0530 hrs. and we will go from there depending on how she does. 09/27/18 04:47 she states she still has some central chest heaviness. It is better on the nitro drip. No headache at this time. Will increase nitro drip to 10 mcg/m. 09/27/18 05:31 Nurse reports to me that the chest pain is becoming more intense. Currently describes it as burning and rates it as 5 out of 10. Will try fentanyl 25 g IV by a low-dose and she is on amiodarone. This will be given with Reglan 5 mg IV. Blood pressure is 114/43. Heart rate is 52 and sinus. Acting ECG is unchanged from the first with no sign of ischemia although she has a left bundle branch block. She is for repeat cardiac markers at this time. It appears that the patient has acute coronary syndrome and after the labs are back I will discuss case with cardiology services at [facility] roomette cared for her this last 2 years. 09/27/18 06:48 cases been discussed with hospitalist --at [facility] in [place] and he has accepted care. She will tentatively will be admitted to the telemetry unit with potential for cardiology consult. She'll be transported to that facility per ground ambulance. Departure - Departure Time of Disposition: 06:49 Disposition: DC/Tfer to Acute Hospital 02 Reason for Transfer *Q: Other Condition: Fair Clinical Impression: Chest pain with high risk of acute coronary syndrome Referrals: Jose Carlos Westfall MD [Primary Care Provider] - Forms: ED Department Discharge Additional Instructions: Due to patient's evolving and worsening chest pain over the last 6-8 hours i.e. acute coronary syndrome and a very high risk for infarct due to known coronary disease patient was sent to [facility] in [facility] for further evaluation by cardiology services. Her age places her at high risk for any intervention other than possible stent placement. - My Orders Last 24 Hours: My Active Orders 09/27/18 02:45 Sodium Chloride 0.9% [Normal Saline] 1,000 ml IV ASDIRECTED 09/27/18 02:51 EKG Documentation Completion [RC] STAT Chest 1V Frontal [CR] Stat 09/27/18 04:15 Nitroglycerin/D5W [Nitroglycerin 25 MG/D5W 250 ML] 25 mg in 250 ml IV TITRATE 09/27/18 05:15 EKG Documentation Completion [RC] STAT - Assessment/Plan Last 24 Hours: My Active Orders 09/27/18 02:45 Sodium Chloride 0.9% [Normal Saline] 1,000 ml IV ASDIRECTED 09/27/18 02:51 EKG Documentation Completion [RC] STAT Chest 1V Frontal [CR] Stat 09/27/18 04:15 Nitroglycerin/D5W [Nitroglycerin 25 MG/D5W 250 ML] 25 mg in 250 ml IV TITRATE 09/27/18 05:15 EKG Documentation Completion [RC] STAT
[2018-09-27] MEDS ORDERED: Sodium Chloride 0.9% 1,000 ML IV SCH (02:45)
[2018-09-27] MEDS ORDERED: Aspirin 81 MG Tab.Chew PO ONE (02:50)
[2018-09-27] MEDS ORDERED: Nitroglycerin/D5W 25 MG/250 ML BOTTLE IV SCH (04:15)
[2018-09-27] MEDS ORDERED: fentaNYL 100 MCG/2 ML SDV IVPUSH ONE (05:29)
[2018-09-27] MEDS ORDERED: Metoclopramide 10 MG/2 ML SDV IVPUSH ONE (05:30)
--- NOTE | 2018-09-27 09:02 | CR ---
Chest: Frontal view of the chest is obtained. Comparison: Previous chest x-ray of 02/07/18. Heart is within normal limits for portable technique. Increased lung markings are noted which appear stable and chronic. Previous sternotomy is noted. Minimal scoliosis is noted within the spine. Osteopenia is present. Surgical clips are seen from prior cholecystectomy. Impression: 1. Findings as noted above. Nothing acute is appreciated when compared to prior study. Diagnostic code #2
== END 2018-09-27 07:24 ==
LOC: JD.ED 02:23
DX: R07.89 Other chest pain (principal); I11.0 Hypertensive heart disease with heart failure; I50.9 Heart failure, unspecified; I25.10 Atherosclerotic heart disease of native coronary artery without angina pectoris; I48.91 Unspecified atrial fibrillation; Z88.8 Allergy status to other drugs, medicaments and biological substances; E05.90 Thyrotoxicosis, unspecified without thyrotoxic crisis or storm; Z88.5 Allergy status to narcotic agent; Z79.82 Long term (current) use of aspirin; Z79.899 Other long term (current) drug therapy
CPT/HCPCS: 36415; 71045; 80053; 82553; 83735; 83880; 84484; 85007; 85027; 85610; 85730; 86140; 93005; 96361; 96365; 96366; 96375; 99285; A9270; J2765; J3010; J3490; J7040